=== PATIENT | female | born 1995 | race African-American/Black ===

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

== ENCOUNTER 2017-03-13 12:21 | Observation (INO) | payer OTHER ==
[~2017-03-13 12:21] MED LIST changes: +AMOX1TAB61 PO
[2017-03-13] MEDS ORDERED: IV RINGERS,LACTATED 1000ML 1,000 ML IV SCH (13:00)
== END 2017-03-13 15:15 | disposition home or self-care (01) ==
LOC: 3 SO LND 12:21 → INTOOBSV 12:21
PROVIDERS: ADMIT Specialist; ATTEND Specialist
DX: O62.9 Abnormality of forces of labor, unspecified (principal); Z3A.34 34 weeks gestation of pregnancy
CPT/HCPCS: G0378; G0379; 96360; J7120

== ENCOUNTER 2017-05-23 14:26 | Emergency (ER) | payer OTHER ==
[~2017-05-23] VITALS: Ht 170.2 cm; Wt 77.1 kg
[~2017-05-23 14:26] MED LIST changes: +HYDR-971 PO; +NAPR500T3 PO
[2017-05-23 14:57] VITALS: BP 127/94
--- NOTE | 2017-05-23 15:27 | PHYS DOC ---
Past Medical History Past Medical History: No Pertinent History Past Surgical History: No Surgical History Alcohol Use: None Drug Use: None Adult General Chief Complaint Chief Complaint: SEXUALLY TRANSMITTED DISEASE HPI HPI Patient is in 21 year old female who presents in the ED with request for test. Patient is not concerned about STDs. She states she had a baby 1 month ago and had sex with the baby mitra recently who promised patient he withdraw during ejaculation. Patient denies any symptoms. Review of Systems Review of Systems Constitutional: Denies fever or chills [] Eyes: Denies change in visual acuity, redness, or eye pain [] GI: test : Denies dysuria or hematuria [] Musculoskeletal: Denies back pain or joint pain [] Integument: Denies rash or skin lesions [] Neurologic: Denies headache, focal weakness or sensory changes [] Endocrine: Denies polyuria or polydipsia [] Allergies Allergies Allergies Coded Allergies Type Severity Reaction Last Updated Verified No Known Drug Allergies 10/10/16 No Physical Exam Physical Exam Constitutional: Well developed, well nourished, no acute distress, non-toxic appearance. [] HENT: Normocephalic, atraumatic, bilateral external ears normal, oropharynx moist, no oral exudates, nose normal. [] Abdomen: Bowel sounds normal, soft, no tenderness, no masses, no pulsatile masses. [] Skin: Warm, dry, no erythema, no rash. [] Back: No tenderness, no CVA tenderness. [] Extremities: No tenderness, no cyanosis, no clubbing, ROM intact, no edema. [] Neurologic: Alert and oriented X 3, normal motor function, normal sensory function, no focal deficits noted. [] Psychologic: Affect normal, judgement normal, mood normal. [] Current Patient Data Vital Signs Vital Signs Date Time Temp Pulse Resp B/P (MAP) Pulse Ox O2 Delivery O2 Flow Rate FiO2 05/23/17 14:57 98.8 73 22 99 Room Air 98.8 Lab Values Laboratory Tests Test 05/23/17 14:27 POC Urine HCG, Qualitative Hcg negative (Negative) EKG EKG [] Radiology/Procedures Radiology/Procedures [] Course & Med Decision Making Course & Med Decision Making Pertinent Labs and Imaging studies reviewed. (See chart for details) This is a 21-year-old female patient presenting to the ED requesting a test, she had a baby 1 month ago, she has not missed any cycle. She has no symptoms. Negative urine hCG. She has an STRATEGIC CLIENT EXECUTIVE. She'll follow-up with her OBGYN as needed. Vashti Disclaimer Vashti Disclaimer This electronic medical record was generated, in whole or in part, using a voice recognition dictation system. Departure Departure Impression: Primary Impression: test negative Disposition: HOME, SELF-CARE Condition: STABLE Referrals: NO PCP (PCP) Follow-up with your STRATEGIC CLIENT EXECUTIVE as needed Additional Instructions: Your test is negative. Follow-up with your STRATEGIC CLIENT EXECUTIVE as needed. [employer] [employer] REP May 23, 2017 15:27
== END 2017-05-23 15:42 | disposition home or self-care (01) ==
LOC: ER 14:26
DX: Z32.02 Encounter for pregnancy test, result negative (principal)
CPT/HCPCS: 81025; 99282

== ENCOUNTER 2017-11-18 14:32 | Emergency (ER) | payer OTHER ==
[2017-11-18 15:03] LABS: URINE HCG POC HCG NEGATIVE (Negative)
[2017-11-18 15:16] LABS: BILIRUBIN,URINE NEGATIVE (NEG); CLARITY,URINE CLOUDY; COLOR,URINE YELLOW; GLUCOSE,URINE NEGATIVE (NEG); NITRITE,URINE NEGATIVE (NEG); PROTEIN,URINE NEGATIVE (NEG-TRACE)
[2017-11-18 15:25] LABS: BACTERIA,URINE MODERATE /HPF (0-FEW); RBC,URINE 0 /HPF (0-2); SQUAMOUS EPITHELIAL CELL,UR MANY /LPF
[2017-11-18 15:45] LABS: NEG OBC UR NEG; POS OBC UR POS; U PREG PATIENT NEGATIVE (NEG)
== END 2017-11-18 15:57 | disposition home or self-care (01) ==
LOC: ER 14:32
DX: R10.30 Lower abdominal pain, unspecified (principal); Z32.02 Encounter for pregnancy test, result negative
CPT/HCPCS: 81001; 81025; 87086; 99284

== ENCOUNTER 2018-01-26 03:21 | Emergency (ER) | payer OTHER ==
[2018-01-26] MEDS ORDERED: LIDOCAINE WITH 8.4% SOD BICARB 3 ML DISP.SYRIN. (04:15)
[2018-01-26] MEDS: HYDROcodone/APAP 5/325MG 1 TAB TABLET PO (04:44)
[2018-01-26] MEDS: IBUPROFEN 800 MG TABLET. PO (04:45)
== END 2018-01-26 04:49 | disposition home or self-care (01) ==
LOC: ER 03:21
DX: L02.31 Cutaneous abscess of buttock (principal)
CPT/HCPCS: 10060; 99283-25

== ENCOUNTER 2018-11-12 14:38 | Emergency (ER) | payer OTHER ==
[~2018-11-12] VITALS: Ht 170.2 cm; Wt 74.8 kg
[~2018-11-12 14:38] MED LIST changes: +HYDR-3164 PO; -HYDR-971 PO; +NAPR-514 PO; -NAPR500T3 PO
[2018-11-12 15:09] VITALS: BP 146/83
[2018-11-12 15:17] LABS: BILIRUBIN,URINE NEGATIVE (NEG); CLARITY,URINE CLEAR; COLOR,URINE YELLOW; NITRITE,URINE NEGATIVE (NEG); PROTEIN,URINE NEGATIVE (NEG-TRACE)
[2018-11-12] MEDS ORDERED: METO10TA81 PO (15:26)
[2018-11-12] MEDS ORDERED: PNV1TABL25 PO (15:26)
[2018-11-12 15:34] LABS: BACTERIA,URINE FEW /HPF (0-FEW); RBC,URINE 0 /HPF (0-2); SQUAMOUS EPITHELIAL CELL,UR MOD /LPF
--- NOTE | 2018-11-12 15:41 | PHYS DOC ---
Past Medical History Past Medical History: No Pertinent History Past Surgical History: No Surgical History Alcohol Use: None Drug Use: None Adult General Chief Complaint Chief Complaint: PELVIC PAIN HPI HPI Patient is a 23 year old female who presents requesting test. Patient states her last period was in August. She is not using control. She presents to the ER only to request a test. She has no pelvic pain , fever, chills. No nausea or vomiting. Denies any other complaints. Review of Systems Review of Systems Constitutional: Denies fever or chills Eyes: Denies change in visual acuity HENT: Denies nasal congestion GI: Denies abdominal pain : Denies dysuria or hematuria Musculoskeletal: Denies back pain Integument: Denies rash Neurologic: Denies headache All other systems were reviewed and found to be within normal limits, except as documented in this note. Allergies Allergies Allergies Coded Allergies Type Severity Reaction Last Updated Verified No Known Drug Allergies 10/10/16 No Physical Exam Physical Exam Constitutional: Well developed, well nourished, no acute distress, non-toxic appearance HENT: Normocephalic, atraumatic, bilateral external ears normal, oropharynx moist Eyes: PERRLA, EOMI, conjunctiva normal Neck: Normal range of motion Skin: Warm, dry, no erythema, no rash Extremities: No edema Neurologic: Alert and oriented X 3 Psychologic: Affect normal Current Patient Data Vital Signs Vital Signs Date Time Temp Pulse Resp B/P (MAP) Pulse Ox O2 Delivery O2 Flow Rate FiO2 11/12/18 15:09 98.8 98 16 146/83 (104) 100 Room Air 98.8 Lab Values Laboratory Tests Test 11/12/18 14:53 11/12/18 15:05 Urine Color Yellow Urine Clarity Clear Urine pH 7.0 Urine Specific [place] >=1.030 Urine Protein Negative mg/dL (NEG-TRACE) Urine Glucose (UA) Negative mg/dL (NEG) Urine Ketones (Stick) Negative mg/dL (NEG) Urine Blood Negative (NEG) Urine Nitrite Negative (NEG) Urine Bilirubin Negative (NEG) Urine Urobilinogen Dipstick 1.0 mg/dL (0.2 mg/dL) Urine Leukocyte Esterase Small (NEG) Urine RBC 0 /HPF (0-2) Urine WBC 1-4 /HPF (0-4) Urine Squamous Epithelial Cells Mod /LPF Urine Bacteria Few /HPF (0-FEW) Urine Mucus Mod /LPF POC Urine HCG, Qualitative Hcg positive (Negative) EKG EKG [] Radiology/Procedures Radiology/Procedures [] Course & Med Decision Making Course & Med Decision Making Pertinent Labs and Imaging studies reviewed. (See chart for details) Patient evaluated in the ER today for test. She did test + for . She had no complaints of pelvic pain, bleeding, fever, or any other. She was discharged to home with Rx for vitamins and reglan. F/ u with Dr. Peng. Vashti Disclaimer Vashti Disclaimer This electronic medical record was generated, in whole or in part, using a voice recognition dictation system. Departure Departure Impression: Primary Impression: Disposition: HOME, SELF-CARE Condition: GOOD Patient Instructions: - First Trimester Scripts Pnv Cmb#95/Ferrous Fumarate/Fa ( TABLET) 1 Each Tablet 1 TAB PO DAILY, #90 TAB 3 Refills Prov: YARY JOSEPH DO 11/12/18 Metoclopramide Hcl (REGLAN) 10 Mg Tablet 10 MG PO QID for nause, #20 TAB 0 Refills Prov: YARY JOSEPH DO 11/12/18 YARY JOSEPH DO Nov 12, 2018 15:41
== END 2018-11-12 15:48 | disposition home or self-care (01) ==
LOC: ER 14:38
DX: Z32.01 Encounter for pregnancy test, result positive (principal)
CPT/HCPCS: 81001; 81025; 99283

== ENCOUNTER 2019-01-06 21:43 | Emergency (ER) | payer OTHER ==
[~2019-01-06] VITALS: Ht 170.2 cm; Wt 78.9 kg
[~2019-01-06 21:43] MED LIST changes: +METO10TA81 PO; +PNV1TABL25 PO
[2019-01-07] MEDS ORDERED: MUPI22OI2 TP
[2019-01-07] MEDS ORDERED: CEPH500C PO
--- NOTE | 2019-01-07 00:14 | PHYS DOC ---
Past Medical History Past Medical History: No Pertinent History Additional Past Medical Histor: Multiple abscess's Past Surgical History: No Surgical History Alcohol Use: None Drug Use: None Adult General Chief Complaint Chief Complaint: ABSCESS HPI HPI Patient is a 23 yo, 11 week , female presenting w/ an abscess located on her left intergluteal cleft about 3 cm from her anus. Pt reports she noticed it 4 days ago and she did warm baths and warm compresses, which caused it to swell more and become more painful. She relates having prior abscesses that were treated successfully w/ I&D and she believes this is the same thing. Pain is described as a "stinging" pain and rated a 10/10. She denies radiation of her pain, bowel/bladder changes, n/v, chest pain, SOB, fever, chills, sick contacts, or blood in stool or urine. She stated "just cut it open and get this crap out, I know it'll get better." Review of Systems Review of Systems Constitutional: Denies fever or chills Eyes: Denies change in visual acuity, redness, or eye pain HENT: Denies nasal congestion or sore throat Respiratory: Denies cough or shortness of breath Cardiovascular: No additional information not addressed in HPI GI: Denies abdominal pain, nausea, vomiting, bloody stools or diarrhea : Denies dysuria or hematuria Musculoskeletal: Denies back pain or joint pain Integument: Denies rash or skin lesions Neurologic: Denies headache, focal weakness or sensory changes Endocrine: Denies polyuria or polydipsia All other systems were reviewed and found to be within normal limits, except as documented in this note. Allergies Allergies Allergies Coded Allergies Type Severity Reaction Last Updated Verified No Known Drug Allergies 10/10/16 No Physical Exam Physical Exam Xochitl Figueroa, an AIR CONDITIONING SPECIALIST, was present throughout the encounter serving as supervisor assembly and packing DURING exam Constitutional: Well developed, well nourished, no acute distress, non-toxic appearance. [] HENT: Normocephalic, atraumatic, bilateral external ears normal, oropharynx moist, no oral exudates, nose normal. [] Eyes: PERRLA, EOMI, conjunctiva normal, no discharge. [] Neck: Normal range of motion, no tenderness, supple, no stridor. [] Abdomen: Bowel sounds normal, soft, no tenderness, no masses, no pulsatile masses. [] Skin: Warm, dry, no erythema, no rash. 2cm abscess located on left buttock, about 3 cm from her anus at the intergluteal cleft. It is warm to the touch touch, exquisitely tender to light palpation, and the overlying skin is taut and looks puss filled. Back: No tenderness, no CVA tenderness. [] Extremities: No tenderness, no cyanosis, no clubbing, ROM intact, no edema. [] Neurologic: Alert and oriented X 3, normal motor function, normal sensory function, no focal deficits noted. [] Psychologic: Affect normal, judgement normal, mood normal. [] Current Patient Data Vital Signs Vital Signs Date Time Temp Pulse Resp B/P (MAP) Pulse Ox O2 Delivery O2 Flow Rate FiO2 01/07/19 00:15 16 128/72 (90) 100 01/06/19 23:14 98.8 98 Room Air 98.8 EKG EKG [] Radiology/Procedures Radiology/Procedures [] Course & Med Decision Making Course & Med Decision Making 23 yo 11 week female with a history of multiple abscesses successfully treated by I&D presents with a left buttock abscess. The pt reports that it feels "exactly like," her symptoms from previous abscesses. Upon PE chaperoned with Xochitl, an AIR CONDITIONING SPECIALIST, a 2-3 cm abscess was appreciated on inspection. She is exquisitely tender to light palpation and the abscess looks puss-filled. She notes resolution of her symptoms in the past with I&D. Ddx Intergluteal cleft abscess Workup I&D was performed verbal consent area prepped usual fashion lidocaine subcutaneous for anesthesia 0.5 cm incision of moderate proximally 5-8 mL also possible was returned loculations were explored overall patient tolerated very well and a slight packing w/ a 4x4 was placed and covered. Xochitl Mendosa was present throughout the procedure. ABX's given as noted below strict return precautions for any worsening or recurrence. Of note patient was not complaining of any abdominal pain or any symptoms at all during this ER visit Pt education on wound care Dragon Disclaimer Dragon Disclaimer This electronic medical record was generated, in whole or in part, using a voice recognition dictation system. Departure Departure Impression: Primary Impression: Abscess Disposition: 01 HOME, SELF-CARE Condition: STABLE Patient Instructions: Abscess, [id number] Scripts Cephalexin (CEPHALEXIN) 500 Mg Capsule 1 CAP PO QID, #28 CAP Prov: DARYN JOHN MD 01/07/19 Mupirocin (MUPIROCIN OINTMENT) 22 Gm Oint...g. 1 DE TP TID for WOUND CARE, #1 TUBE Prov: DARYN JOHN MD 01/07/19 DARYN JOHN MD Jan 07, 2019 00:14
[2019-01-07 00:15] VITALS: BP 128/72
== END 2019-01-07 00:20 | disposition home or self-care (01) ==
LOC: ER 21:43
DX: O99.711 Diseases of the skin and subcutaneous tissue complicating pregnancy, first trimester (principal); L02.31 Cutaneous abscess of buttock; Z3A.11 11 weeks gestation of pregnancy
CPT/HCPCS: 10060; 99283

== ENCOUNTER 2019-02-01 14:59 | Emergency (ER) | payer OTHER ==
[~2019-02-01] VITALS: Ht 170.2 cm; Wt 78.9 kg
[~2019-02-01 14:59] MED LIST changes: +CEPH500C PO; +MUPI22OI2 TP
--- NOTE | 2019-02-01 16:04 | PHYS DOC ---
Past Medical History Past Medical History: No Pertinent History Additional Past Medical Histor: Multiple abscess's (CHHAYA HAN APRN) Past Surgical History: No Surgical History (CHHAYA HAN APRN) Alcohol Use: None Drug Use: None (CHHAYA HAN APRN) Adult General Chief Complaint Chief Complaint: VAGINAL BLEEDING HPI HPI 23-year-old female presents to ER for complaints of vaginal bleeding which started around 1:00 today while she was cleaning. She reports she is approximately 15 weeks 3 para 1. Her LMP was 09/2018. Reports she is being cared for by Dr. Peng with her last appointment being last Monday. She denies any abdominal pain. She states she did have sexual intercourse yesterday denies any pain or vaginal bleeding following. She denies any urinary symptoms, fever, nausea or vomiting, or back pain. (CHHAYA HAN APRN) Review of Systems Review of Systems Constitutional: Denies fever or chills [] Eyes: Denies change in visual acuity, redness, or eye pain [] HENT: Denies nasal congestion or sore throat [] Respiratory: Denies cough or shortness of breath [] Cardiovascular: No additional information not addressed in HPI [] GI: Denies abdominal pain, nausea, vomiting, bloody stools or diarrhea [] : Denies dysuria or hematuria. Reports vaginal spotting- denies pelvic pressure Musculoskeletal: Denies back pain or joint pain [] Integument: Denies rash or skin lesions [] Neurologic: Denies headache, focal weakness or sensory changes [] All other systems were reviewed and found to be within normal limits, except as documented in this note. (CHHAYA HAN APRN) Current Medications Current Medications Current Medications Medications (Trade) Dose Ordered Sig/Dinesh Start Time Stop Time Status Last Admin Dose Admin Potassium Chloride (Klor-Con) 40 meq 1X ONCE 02/01/19 17:45 02/01/19 17:46 DC (DARYN JOHN MD) Allergies Allergies Allergies Coded Allergies Type Severity Reaction Last Updated Verified No Known Drug Allergies 10/10/16 No (DARYN JOHN MD) Physical Exam Physical Exam Constitutional: Well developed, well nourished, no acute distress, non-toxic appearance. [] HENT: Normocephalic, atraumatic, bilateral ears normal, oropharynx moist, no oral exudates, nose normal. [] Eyes: Pupils equal, conjunctiva normal, no discharge. [] Neck: Normal range of motion, no tenderness, supple, no stridor. [] Cardiovascular: Heart rate regular rhythm, no murmur [] Lungs & Thorax: Bilateral breath sounds clear to auscultation [] Abdomen: Bowel sounds normal, soft, no tenderness- no rigidity, no masses, no pulsatile masses. [] Skin: Warm, dry, no erythema, no rash. [] Back: No tenderness, no CVA tenderness. [] Extremities: No tenderness, no cyanosis, no clubbing, ROM intact, no edema. [] Neurologic: Alert and oriented X 3, normal motor function, normal sensory function, no focal deficits noted. [] Psychologic: Affect normal, judgement normal, mood normal. [] (REFFITT,CHHAYA James APRN) Current Patient Data Vital Signs Vital Signs Date Time Temp Pulse Resp B/P (MAP) Pulse Ox O2 Delivery O2 Flow Rate FiO2 02/01/19 16:09 98.7 83 16 137/69 (91) 99 Room Air 98.7 (DARYN JOHN MD) Lab Values Laboratory Tests Test 02/01/19 15:40 02/01/19 15:56 02/01/19 16:20 Urine Collection Type Unknown Urine Color Kitty Urine Clarity Clear Urine pH 6.5 Urine Specific [place] >=1.030 Urine Protein Negative mg/dL (NEG-TRACE) Urine Glucose (UA) Negative mg/dL (NEG) Urine Ketones (Stick) Trace mg/dL (NEG) Urine Blood Moderate (NEG) Urine Nitrite Negative (NEG) Urine Bilirubin Small (NEG) Urine Urobilinogen Dipstick 1.0 mg/dL (0.2 mg/dL) Urine Leukocyte Esterase Small (NEG) Urine RBC 3-5 /HPF (0-2) Urine WBC 1-4 /HPF (0-4) Urine Squamous Epithelial Cells Many /LPF Urine Bacteria 0 /HPF (0-FEW) Urine Mucus Marked /LPF POC Urine HCG, Qualitative Hcg positive (Negative) White Blood Count 7.1 x10^3/uL (4.0-11.0) Red Blood Count 3.54 x10^6/uL (3.50-5.40) Hemoglobin 10.6 g/dL (12.0-15.5) L Hematocrit 31.8 % (36.0-47.0) L Mean Corpuscular Volume 90 fL (79-100) Mean Corpuscular Hemoglobin 30 pg (25-35) Mean Corpuscular Hemoglobin Concent 33 g/dL (31-37) Red Cell Distribution Width 14.0 % (11.5-14.5) Platelet Count 236 x10^3/uL (140-400) Neutrophils (%) (Auto) 70 % (31-73) Lymphocytes (%) (Auto) 21 % (24-48) L Monocytes (%) (Auto) 7 % (0-9) Eosinophils (%) (Auto) 1 % (0-3) Basophils (%) (Auto) 0 % (0-3) Neutrophils # (Auto) 5.0 x10^3uL (1.8-7.7) Lymphocytes # (Auto) 1.5 x10^3/uL (1.0-4.8) Monocytes # (Auto) 0.5 x10^3/uL (0.0-1.1) Eosinophils # (Auto) 0.1 x10^3/uL (0.0-0.7) Basophils # (Auto) 0.0 x10^3/uL (0.0-0.2) Maternal Serum HCG Beta Subunit 59386 mIU/mL (0-5) H Sodium Level 138 mmol/L (136-145) Potassium Level 3.2 mmol/L (3.5-5.1) L Chloride Level 102 mmol/L (98-107) Carbon Dioxide Level 25 mmol/L (21-32) Anion Gap 11 (6-14) Blood Urea Nitrogen 4 mg/dL (7-20) L Creatinine 0.4 mg/dL (0.6-1.0) L Estimated GFR (Cockcroft-Gault) 243.8 Glucose Level 74 mg/dL (70-99) Calcium Level 8.8 mg/dL (8.5-10.1) Laboratory Tests 02/01/19 16:20 Laboratory Tests 02/01/19 16:20 Microbiology 02/01/19 Urine Culture - Final, Complete 02/01/19 Urine Culture Result 1 (JAGRUTI) - Final, Complete (DARYN JOHN MD) EKG EKG [] (REFFITT,CHHAYA M TILE HELPER) Radiology/Procedures Radiology/Procedures Pelvic Exam: 1725 Abdomen: Nontender External Genitalia: Normal Skin- no rash or lesions Speculum: Normal vaginal mucosa, small amount dark red blood in vaginal vault without tissue or clots. Cervical os closed. No lesions, ecchymosis or erythema around cervix PROCEDURE: PREG MORE THAN OR EQ TO 14 WKS Indication:vag spotting TECHNIQUE: Ultrasound OB greater than equal to 14 weeks. COMPARISON: None FINDINGS: Single intrauterine seen in breech presentation. Placenta lies posterior in location. Biparietal diameter measures 3.37 cm corresponding to gestation age of 16 weeks 3 days. Head circumference measures 12.22 cm corresponding to 16 weeks 1 day. Abdominal circumference measures 9.74 cm corresponding to gestation age of 15 weeks 6 days. Femoral length measures 1.91 cm corresponding to gestation age of 15 weeks 5 days. Heart rate 150 bpm. Cervix is closed and measures 4.7 cm in length. Primary fluid index is within normal limits. Estimated weight of 135 g. IMPRESSION: Single live viable intrauterine with estimated gestation age of 16 weeks 0 day and due date of 07/19/2019. Electronically signed by: Godwin Hopkins DO (02/01/2019 4:55 PM) [facility] DICTATED and SIGNED BY: GODWIN HOPKINS DO DATE: 02/01/19 1655 (CHHAYA HAN APRN) Course & Med Decision Making Course & Med Decision Making Pertinent Labs and Imaging studies reviewed. (See chart for details) 1730: Patient was evaluated in the ER for complaints of vaginal spotting. Ultrasound was obtained and labs- ultrasound report with single intrauterine at 16 weeks with estimated due date 07/19/19. H&H 10.6/31.8- with patient having history of anemia and these levels are better than her last results in her records. Pt advised on need for vitamins daily. Pt's K+ was 3.2 so 40 meq oral K+ supplement provided while in the ER. Pt advised of her level and need for K+ rich food in diet and need for recheck of labs. Pelvic exam was complete patient did have dark red blood in vaginal vault no clots, tissue, or active bleeding from cervix. Cervical os was closed. Patient denied any abdominal pain, cramping, or back pain. Patient was advised with vaginal bleeding she should have her level rechecked in 48 hours. Patient was advised to call her STRATEGIC MANAGER's office and discussed her ER visit and need for follow-up labs. Patient's blood type was A+ so she was not able to candidate. Patient reports following tests she is comfortable with home discharge with plans to call OB office in the morning. Patient has been in no visible distress with vital signs stable. Educated on vaginal rest until follow- up with her OB doctor. Education provided on signs and symptoms to return to ER for an discharge instructions were discussed. (CHHAYA HAN APRN) Course & Med Decision Making Staff Physician Addendum: I was working in the ER during the course of this patient's visit. I was available for consultation as needed, but I was not directly involved in the care of this patient. (DARYN JOHN MD) Dragon Disclaimer Dragon Disclaimer This electronic medical record was generated, in whole or in part, using a voice recognition dictation system. (CHHAYA HAN APRN) Departure Departure Impression: Primary Impression: Vaginal bleeding during Disposition: 01 HOME, SELF-CARE Condition: STABLE Referrals: MARISOL PENG MD (PCP) Patient Instructions: Vaginal Bleeding During , Second Trimester Additional Instructions: Vaginal rest until follow-up with your STRATEGIC MANAGER. No sexual intercourse or insertion into the vagina. You need to have your level rechecked in 48 hours. Call your OB GYNs office and discuss your ER visit and need for repeat of labs. Drink plenty of fluids and eat well-balanced meals. Your potassium level was 3.2 and you were provided with potassium while in the ER. If you start having vaginal bleeding which is soaking through 1-2 pads in 1 hour you should return to the ER or contact your STRATEGIC MANAGER. CHHAYA HAN APRN Feb 01, 2019 16:04 DARYN JOHN MD Feb 13, 2019 19:41
[2019-02-01 16:05] LABS: BILIRUBIN,URINE SMALL (NEG); CLARITY,URINE CLEAR; COLOR,URINE AMBER; NITRITE,URINE NEGATIVE (NEG); PH,URINE 6.5; PROTEIN,URINE NEGATIVE (NEG-TRACE)
[2019-02-01 16:09] VITALS: BP 137/69
[2019-02-01 16:19] LABS: SQUAMOUS EPITHELIAL CELL,UR MANY /LPF
[2019-02-01 16:20] LABS: BACTERIA,URINE 0 /HPF (0-FEW)
[2019-02-01 16:41] LABS: BASO % 0 % (0-3); EOS # 0.1 x10^3/uL (0.0-0.7); EOS % 1 % (0-3); HEMATOCRIT 31.8 % (36.0-47.0); HEMOGLOBIN 10.6 g/dL (12.0-15.5); LYMPH # 1.5 x10^3/uL (1.0-4.8); LYMPH % 21 % (24-48); MEAN CORPUSCULAR HEMOGLOBIN 30 pg (25-35); MEAN CORPUSCULAR HGB CONC 33 g/dL (31-37); MEAN CORPUSCULAR VOLUME 90 fL (79-100); MONO # 0.5 x10^3/uL (0.0-1.1); MONO % 7 % (0-9); NEUT % 70 % (31-73); PLATELET COUNT 236 x10^3/uL (140-400); RED BLOOD COUNT 3.54 x10^6/uL (3.50-5.40); WHITE BLOOD COUNT 7.1 x10^3/uL (4.0-11.0)
[2019-02-01 16:58] LABS: CALCIUM 8.8 mg/dL (8.5-10.1); CREATININE 0.4 mg/dL (0.6-1.0); GFR 243.8; POTASSIUM 3.2 mmol/L (3.5-5.1)
--- NOTE | 2019-02-01 16:58 | RAD ---
Indication:vag spotting TECHNIQUE: Ultrasound OB greater than equal to 14 weeks. COMPARISON: None FINDINGS: Single intrauterine seen in breech presentation. Placenta lies posterior in location. Biparietal diameter measures 3.37 cm corresponding to gestation age of 16 weeks 3 days. Head circumference measures 12.22 cm corresponding to 16 weeks 1 day. Abdominal circumference measures 9.74 cm corresponding to gestation age of 15 weeks 6 days. Femoral length measures 1.91 cm corresponding to gestation age of 15 weeks 5 days. Heart rate 150 bpm. Cervix is closed and measures 4.7 cm in length. Primary fluid index is within normal limits. Estimated weight of 135 g. IMPRESSION: Single live viable intrauterine with estimated gestation age of 16 weeks 0 day and due date of 07/19/2019. Electronically signed by: Godwin Hopkins DO (02/01/2019 4:55 PM) [facility]
[2019-02-01] MEDS ORDERED: POTASSIUM CHLORIDE 20 MEQ TABLET.ER. PO ONE (17:45)
== END 2019-02-01 17:57 | disposition home or self-care (01) ==
LOC: ER 14:59
DX: O46.92 Antepartum hemorrhage, unspecified, second trimester (principal); Z3A.15 15 weeks gestation of pregnancy
CPT/HCPCS: 36415; 76805; 80048; 81001; 81025; 84702; 85025; 86900; 86901; 87086; 99284-25

== ENCOUNTER 2019-04-11 20:30 | Observation (INO) | payer OTHER ==
[2019-04-11] MEDS ORDERED: IV RINGERS,LACTATED 1000ML 1,000 ML IV SCH (20:36)
[2019-04-11 20:55] LABS: BILIRUBIN,URINE NEGATIVE (NEG); CLARITY,URINE CLEAR; COLOR,URINE YELLOW; NITRITE,URINE NEGATIVE (NEG); PROTEIN,URINE NEGATIVE (NEG-TRACE)
[2019-04-11 21:01] LABS: BACTERIA,URINE 0 /HPF (0-FEW); BARBITURATES NEG (NEG); BENZODIAZEPINES NEG (NEG); CANNABINOIDS POS (NEG); COCAINE NEG (NEG); METHADONE NEG (NEG); OPIATES NEG (NEG); PHENCYCLIDINE NEG (NEG); RBC,URINE 0 /HPF (0-2); SQUAMOUS EPITHELIAL CELL,UR MOD /LPF
[2019-04-11 21:02] LABS: AMPHETAMINE/METHAMPHETAMINE NEG (NEG)
[2019-04-11] MEDS ORDERED: ACETAMINOPHEN 500 MG TABLET PO ONE (21:45)
== END 2019-04-11 21:50 | disposition home or self-care (01) ==
LOC: 3 SO LND 20:30
PROVIDERS: ADMIT Obstetrics & Gynecology; ATTEND Obstetrics & Gynecology
DX: O26.892 Other specified pregnancy related conditions, second trimester (principal); R10.9 Unspecified abdominal pain; O99.89 Other specified diseases and conditions complicating pregnancy, childbirth and the puerperium; M54.5 Low back pain; Z3A.25 25 weeks gestation of pregnancy
CPT/HCPCS: 80307; 81001; 87086; G0379

== ENCOUNTER 2019-05-16 02:18 | Observation (INO) | payer OTHER ==
[2019-05-16] MEDS ORDERED: IV RINGERS,LACTATED 1000ML 1,000 ML IV SCH (02:21)
[2019-05-16 02:43] LABS: BILIRUBIN,URINE NEGATIVE (NEG); CLARITY,URINE CLOUDY; COLOR,URINE YELLOW; NITRITE,URINE NEGATIVE (NEG); PH,URINE 7.5; PROTEIN,URINE NEGATIVE (NEG-TRACE)
[2019-05-16 02:47] LABS: BACTERIA,URINE 0 /HPF (0-FEW); RBC,URINE 0 /HPF (0-2); WBC,URINE OCC /HPF (0-4)
[2019-05-16 02:48] LABS: AMORPHOUS SEDIMENT,UR PRESENT /HPF; SQUAMOUS EPITHELIAL CELL,UR MOD /LPF
[2019-05-16 02:51] LABS: BARBITURATES NEG (NEG); BENZODIAZEPINES NEG (NEG); CANNABINOIDS POS (NEG); COCAINE NEG (NEG); METHADONE NEG (NEG); OPIATES NEG (NEG); PHENCYCLIDINE NEG (NEG)
[2019-05-16 02:54] LABS: AMPHETAMINE/METHAMPHETAMINE NEG (NEG)
== END 2019-05-16 04:07 | disposition home or self-care (01) ==
LOC: 3 SO LND 02:18
PROVIDERS: ADMIT Specialist; ATTEND Specialist
DX: O26.893 Other specified pregnancy related conditions, third trimester (principal); R10.30 Lower abdominal pain, unspecified; Z3A.30 30 weeks gestation of pregnancy
CPT/HCPCS: 80307; 81001; G0378; G0379

== ENCOUNTER 2019-05-31 13:32 | Observation (INO) | payer OTHER ==
[2019-05-31] MEDS ORDERED: IV RINGERS,LACTATED 1000ML 1,000 ML IV SCH (13:33)
[2019-05-31 14:25] LABS: BARBITURATES NEG (NEG); BENZODIAZEPINES NEG (NEG); CANNABINOIDS POS (NEG); COCAINE NEG (NEG); METHADONE NEG (NEG); OPIATES NEG (NEG); PHENCYCLIDINE NEG (NEG)
[2019-05-31 14:26] LABS: AMPHETAMINE/METHAMPHETAMINE NEG (NEG); BILIRUBIN,URINE NEGATIVE (NEG); CLARITY,URINE CLEAR; COLOR,URINE YELLOW; NITRITE,URINE NEGATIVE (NEG); PH,URINE 7.5; PROTEIN,URINE NEGATIVE (NEG-TRACE)
[2019-05-31 14:34] LABS: BACTERIA,URINE 0 /HPF (0-FEW); RBC,URINE 0 /HPF (0-2); SQUAMOUS EPITHELIAL CELL,UR OCC /LPF; WBC,URINE OCC /HPF (0-4)
== END 2019-05-31 17:00 | disposition home or self-care (01) ==
LOC: 3 SO LND 13:32
PROVIDERS: ADMIT Specialist; ATTEND Specialist
DX: O62.9 Abnormality of forces of labor, unspecified (principal); O99.89 Other specified diseases and conditions complicating pregnancy, childbirth and the puerperium; M54.5 Low back pain; Z3A.32 32 weeks gestation of pregnancy
CPT/HCPCS: 80307; 81001; G0378; G0379

== ENCOUNTER 2019-06-20 08:21 | Observation (INO) | payer OTHER ==
[~2019-06-20] VITALS: Ht 172.7 cm; Wt 94.8 kg
[2019-06-20] MEDS ORDERED: IV RINGERS,LACTATED 1000ML 1,000 ML IV SCH (09:22)
[2019-06-20 10:04] LABS: CREATININE,RANDOM URINE 135.9 mg/dL (Not Establ.)
[2019-06-20 10:30] LABS: BASO % 0 % (0-3); EOS # 0.1 x10^3/uL (0.0-0.7); EOS % 1 % (0-3); HEMATOCRIT 28.3 % (36.0-47.0); HEMOGLOBIN 9.5 g/dL (12.0-15.5); LYMPH # 1.7 x10^3/uL (1.0-4.8); LYMPH % 25 % (24-48); MEAN CORPUSCULAR HEMOGLOBIN 29 pg (25-35); MEAN CORPUSCULAR HGB CONC 33 g/dL (31-37); MEAN CORPUSCULAR VOLUME 87 fL (79-100); MONO # 0.7 x10^3/uL (0.0-1.1); MONO % 11 % (0-9); NEUT # 4.4 x10^3/uL (1.8-7.7); NEUT % 63 % (31-73); PLATELET COUNT 223 x10^3/uL (140-400); RED BLOOD COUNT 3.26 x10^6/uL (3.50-5.40); RED CELL DISTRIBUTION WIDTH 13.8 % (11.5-14.5)
[2019-06-20 10:37] LABS: CALCIUM 8.3 mg/dL (8.5-10.1); CREATININE 0.5 mg/dL (0.6-1.0); GFR 188.5; POTASSIUM 3.5 mmol/L (3.5-5.1)
[2019-06-20 10:43] LABS: ALBUMIN 2.5 g/dL (3.4-5.0); ALBUMIN/GLOBULIN RATIO 0.7 (1.0-1.7); TOTAL BILIRUBIN 0.6 mg/dL (0.2-1.0); TOTAL PROTEIN 6.3 g/dL (6.4-8.2); URIC ACID 2.6 mg/dL (2.6-6.0)
[2019-06-20 11:41] LABS: BILIRUBIN,URINE NEGATIVE (NEG); CLARITY,URINE CLEAR; COLOR,URINE AMBER; NITRITE,URINE NEGATIVE (NEG); PH,URINE 6.5; PROTEIN,URINE NEGATIVE (NEG-TRACE)
[2019-06-20 12:00] LABS: BACTERIA,URINE FEW /HPF (0-FEW); RBC,URINE RARE /HPF (0-2)
[2019-06-20 12:01] LABS: SQUAMOUS EPITHELIAL CELL,UR MOD /LPF
== END 2019-06-20 13:00 | disposition home or self-care (01) ==
LOC: 3 SO LND 08:21
PROVIDERS: ADMIT Specialist; ATTEND Specialist
DX: O62.9 Abnormality of forces of labor, unspecified (principal); Z3A.35 35 weeks gestation of pregnancy
CPT/HCPCS: 36415; 80053; 81001; 82570; 84156; 84550; 85025; 87086; G0378; G0379; J7120

== ENCOUNTER 2019-06-20 20:49 | Observation (INO) | payer OTHER ==
[2019-06-20] MEDS ORDERED: IV RINGERS,LACTATED 1000ML 1,000 ML IV SCH (20:50)
[2019-06-20 21:23] LABS: BILIRUBIN,URINE NEGATIVE (NEG); CLARITY,URINE CLOUDY; COLOR,URINE YELLOW; NITRITE,URINE NEGATIVE (NEG); PROTEIN,URINE NEGATIVE (NEG-TRACE)
[2019-06-20 21:28] LABS: BACTERIA,URINE MANY /HPF (0-FEW); RBC,URINE 0 /HPF (0-2); SQUAMOUS EPITHELIAL CELL,UR MANY /LPF
[2019-06-20 21:30] LABS: BARBITURATES NEG (NEG); BENZODIAZEPINES NEG (NEG); CANNABINOIDS NEG (NEG); COCAINE NEG (NEG); METHADONE NEG (NEG); OPIATES NEG (NEG); PHENCYCLIDINE NEG (NEG)
[2019-06-20 21:31] LABS: AMPHETAMINE/METHAMPHETAMINE NEG (NEG)
== END 2019-06-20 23:03 | disposition home or self-care (01) ==
LOC: 3 SO LND 20:49
PROVIDERS: ADMIT Specialist; ATTEND Specialist
DX: O62.9 Abnormality of forces of labor, unspecified (principal); O26.893 Other specified pregnancy related conditions, third trimester; R19.7 Diarrhea, unspecified; Z3A.35 35 weeks gestation of pregnancy
CPT/HCPCS: 80307; 81001; 87086; G0378; G0379

== ENCOUNTER 2019-07-10 13:08 | Observation (INO) | payer OTHER ==
[2019-07-10 13:45] LABS: BILIRUBIN,URINE SMALL (NEG); CLARITY,URINE CLOUDY; COLOR,URINE AMBER; NITRITE,URINE NEGATIVE (NEG); PROTEIN,URINE 30 mg/dL (NEG-TRACE)
[2019-07-10 13:47] LABS: AMNIO PT NEGATIVE
[2019-07-10 13:51] LABS: SQUAMOUS EPITHELIAL CELL,UR MANY /LPF
[2019-07-10 13:52] LABS: BACTERIA,URINE MANY /HPF (0-FEW); RBC,URINE 0 /HPF (0-2)
== END 2019-07-10 14:37 | disposition home or self-care (01) ==
LOC: 3 SO LND 13:08
PROVIDERS: ADMIT Specialist; ATTEND Specialist
DX: O62.9 Abnormality of forces of labor, unspecified (principal); Z3A.38 38 weeks gestation of pregnancy
CPT/HCPCS: 36415; 81001; 84112; 87086; G0378; G0379

== ENCOUNTER 2019-07-12 12:25 | Inpatient (IN) | payer OTHER ==
[~2019-07-12] VITALS: Ht 172.7 cm; Wt 98.4 kg
[2019-07-12] MEDS ORDERED: 0.9 % SODIUM CHLORIDE 10 ML DISP.SYRIN. IV PRN ×2 (13:45→14:45)
[2019-07-12 13:54] LABS: BILIRUBIN,URINE NEGATIVE (NEG); CLARITY,URINE CLEAR; COLOR,URINE YELLOW; NITRITE,URINE NEGATIVE (NEG); PH,URINE 6.5; PROTEIN,URINE NEGATIVE (NEG-TRACE)
[2019-07-12 14:05] LABS: BASO # 0.1 x10^3/uL (0.0-0.2); BASO % 1 % (0-3); EOS # 0.1 x10^3/uL (0.0-0.7); EOS % 1 % (0-3); HEMATOCRIT 29.1 % (36.0-47.0); HEMOGLOBIN 9.8 g/dL (12.0-15.5); LYMPH # 1.7 x10^3/uL (1.0-4.8); LYMPH % 21 % (24-48); MEAN CORPUSCULAR HEMOGLOBIN 29 pg (25-35); MEAN CORPUSCULAR HGB CONC 34 g/dL (31-37); MEAN CORPUSCULAR VOLUME 87 fL (79-100); MONO # 0.7 x10^3/uL (0.0-1.1); MONO % 8 % (0-9); NEUT # 5.6 x10^3/uL (1.8-7.7); NEUT % 68 % (31-73); PLATELET COUNT 293 x10^3/uL (140-400); RED BLOOD COUNT 3.36 x10^6/uL (3.50-5.40); RED CELL DISTRIBUTION WIDTH 14.7 % (11.5-14.5); WHITE BLOOD COUNT 8.1 x10^3/uL (4.0-11.0)
[2019-07-12 14:09] LABS: SQUAMOUS EPITHELIAL CELL,UR MANY /LPF
[2019-07-12 14:10] LABS: BACTERIA,URINE MODERATE /HPF (0-FEW)
[2019-07-12 14:13] LABS: CALCIUM 9.1 mg/dL (8.5-10.1); CREATININE 0.5 mg/dL (0.6-1.0); GFR 188.5; POTASSIUM 3.2 mmol/L (3.5-5.1)
[2019-07-12 14:19] LABS: ALBUMIN 2.6 g/dL (3.4-5.0); ALBUMIN/GLOBULIN RATIO 0.6 (1.0-1.7); TOTAL BILIRUBIN 0.8 mg/dL (0.2-1.0); TOTAL PROTEIN 7.2 g/dL (6.4-8.2); URIC ACID 3.1 mg/dL (2.6-6.0)
[2019-07-12] MEDS ORDERED: OXYTOCIN 30 UNIT/500 ML PREMIX 500 ML IV PRN ×2 (14:45)
[2019-07-12] MEDS ORDERED: BUTORPHANOL 2 MG/ML VIAL. IV PRN ×2 (14:45)
[2019-07-12] MEDS ORDERED: fentaNYL PF VIAL 100 MCG/2 ML VIAL IV PRN (14:45)
[2019-07-12] MEDS ORDERED: TERBUTALINE 1 MG/ML VIAL. SQ PRN (14:45)
[2019-07-12] MEDS ORDERED: LIDOCAINE 1% PF 30 ML VIAL. INJ PRN (14:45)
[2019-07-12] MEDS ORDERED: DINOPROSTONE 10 MG SUPP.VAG VG ONE (14:45)
[2019-07-12] MEDS ORDERED: NALBUPHINE 10 MG/ML AMPUL. IV PRN ×2 (14:45)
[2019-07-12 15:52] LABS: BARBITURATES NEG (NEG); BENZODIAZEPINES NEG (NEG); CANNABINOIDS POS (NEG); COCAINE NEG (NEG); METHADONE NEG (NEG); OPIATES NEG (NEG); PHENCYCLIDINE NEG (NEG)
[2019-07-12 15:54] LABS: AMPHETAMINE/METHAMPHETAMINE NEG (NEG)
[2019-07-12] MEDS: IV RINGERS,LACTATED 1000ML 1,000 ML IV SCH ×2 (16:19→22:41)
[2019-07-12 16:37] VITALS: BP 131/76
[2019-07-12] MEDS: ACETAMINOPHEN 325 MG TABLET. PO PRN (17:06)
--- NOTE | 2019-07-12 18:42 | PDOC1 ---
OB - History Hx of Present Care: Good Care Ultrasounds: Normal mid trimester US Obstetrical Complications: Gestational Hypertension Medical Complications: None Past Family/Social History * Past Medical, Surgical, Family and Obstetric Histories reviewed from chart. Blood Type: A+ Rubella: Immune RPR/VDRL: Negative GBS Status: Negative HBsAG: Negative OB - Chief Complaint & HPI Date of Admission: Date of Admission: Jul 12, 2019 at 12:25 Chief Complaint/History : 2 Para: 0 EGA: 38 Reason for admission: induction of labor Indication for induction: medical complication (Gestational HTN) Admission Nurse Assessment Rev: Yes OB - Admission Exam Physical Exam Vitals: VS - Last 72 Hours, by Label Date Time Temp Pulse Resp B/P (MAP) Pulse Ox O2 Delivery O2 Flow Rate FiO2 07/12/19 16:37 98.1 92 18 131/76 (94) Room Air 98.1 HEENT: Normal Heart: Regular Rate Lungs: Clear, Equal Abdomen: Gravid, Non tender, Soft Extremities: Edema Reflexes: Normal Cervical Dilatation: 2cm Effacement: 50% Station: -3 Membranes: Intact Heart Rate: Normal Accelerations: Accelerations Present Decelerations: No decelerations Contractions on Admission: >10 Minutes Apart Intensity: Mild Text A: 38 wks IUP Gestational HTN P: Admit for IOL secondary gestational HTN with cervidil, then pitocin in am. ROD COURTNEY Jr, MD Jul 12, 2019 18:42
--- NOTE | 2019-07-12 23:04 | NUR ---
Previous RN. Eleuterio Moctezuma RN reported the patient was Group Beta Strep Negative, when Melody Epperson RN reviewed chart, Results were found to be Positive. Antibiotics were ordered at that time.
[2019-07-13] MEDS ORDERED: AMPICILLIN SODIUM 2 GM in IV NORMAL SALINE 100ML 100 ML IV ONE ×2
[2019-07-13] MEDS: AMPICILLIN SODIUM 1 GM in IV NORMAL SALINE 50ML 50 ML IV SCH ×3 (05:37→12:48)
[2019-07-13] MEDS: IV RINGERS,LACTATED 1000ML 1,000 ML IV SCH ×5 (08:44→22:42)
[2019-07-13] MEDS ORDERED: ROPIVacaine 0.2% PF 10 ML VIAL. ONE (10:14)
[2019-07-13] MEDS ORDERED: L&D EPIDURAL SYRINGE 50 ML ONE (10:15)
[2019-07-13] MEDS ORDERED: ePHEDrine PF IN SALINE 50 MG/10 ML SYRINGE. IV PRN (10:45)
[2019-07-13] MEDS ORDERED: ROPIVacaine 0.2% IN 0.9%NACL PF 40 MG/20 ML DISP.SYRIN. EPID PRN (10:45)
[2019-07-13] MEDS ORDERED: NALOXONE 0.4 MG/ML VIAL. IV PRN (10:45)
[2019-07-13] MEDS ORDERED: L&D EPIDURAL SYRINGE 50 ML EPID PRN (10:45)
--- NOTE | 2019-07-13 13:53 | PDOC ---
OB Progress Note Date of Service 07/13/19 Time of Evaluation 1350 Notes Pt. feeling well and comfortable with epidural. BP stable Lab Laboratory Tests Test 07/12/19 13:40 07/12/19 13:50 Urine Collection Type Unknown Urine Color Yellow Urine Clarity Clear Urine pH 6.5 Urine Specific [place] <=1.005 Urine Protein Negative mg/dL (NEG-TRACE) Urine Glucose (UA) Negative mg/dL (NEG) Urine Ketones (Stick) Negative mg/dL (NEG) Urine Blood Negative (NEG) Urine Nitrite Negative (NEG) Urine Bilirubin Negative (NEG) Urine Urobilinogen Dipstick 1.0 mg/dL (0.2 mg/dL) Urine Leukocyte Esterase Small (NEG) Urine RBC 1-2 /HPF (0-2) Urine WBC 5-10 /HPF (0-4) Urine Squamous Epithelial Cells Many /LPF Urine Bacteria Moderate /HPF (0-FEW) Urine Random Creatinine 42.0 mg/dL (Not Establ.) Urine Random Total Protein 8.0 mg/dL (Not Establ.) Urine Protein/Creatinine Ratio 190 mg/g (0-200) Urine Opiates Screen Neg (NEG) Urine Methadone Screen Neg (NEG) Urine Barbiturates Neg (NEG) Urine Phencyclidine Screen Neg (NEG) Urine Amphetamine/Methamphetamine Neg (NEG) Urine Benzodiazepines Screen Neg (NEG) Urine Cocaine Screen Neg (NEG) Urine Cannabinoids Screen Pos (NEG) Urine Ethyl Alcohol Neg (NEG) White Blood Count 8.1 x10^3/uL (4.0-11.0) Red Blood Count 3.36 x10^6/uL (3.50-5.40) Hemoglobin 9.8 g/dL (12.0-15.5) Hematocrit 29.1 % (36.0-47.0) Mean Corpuscular Volume 87 fL (79-100) Mean Corpuscular Hemoglobin 29 pg (25-35) Mean Corpuscular Hemoglobin Concent 34 g/dL (31-37) Red Cell Distribution Width 14.7 % (11.5-14.5) Platelet Count 293 x10^3/uL (140-400) Neutrophils (%) (Auto) 68 % (31-73) Lymphocytes (%) (Auto) 21 % (24-48) Monocytes (%) (Auto) 8 % (0-9) Eosinophils (%) (Auto) 1 % (0-3) Basophils (%) (Auto) 1 % (0-3) Neutrophils # (Auto) 5.6 x10^3/uL (1.8-7.7) Lymphocytes # (Auto) 1.7 x10^3/uL (1.0-4.8) Monocytes # (Auto) 0.7 x10^3/uL (0.0-1.1) Eosinophils # (Auto) 0.1 x10^3/uL (0.0-0.7) Basophils # (Auto) 0.1 x10^3/uL (0.0-0.2) Sodium Level 137 mmol/L (136-145) Potassium Level 3.2 mmol/L (3.5-5.1) Chloride Level 103 mmol/L (98-107) Carbon Dioxide Level 24 mmol/L (21-32) Anion Gap 10 (6-14) Blood Urea Nitrogen 6 mg/dL (7-20) Creatinine 0.5 mg/dL (0.6-1.0) Estimated GFR (Cockcroft-Gault) 188.5 BUN/Creatinine Ratio 12 (6-20) Glucose Level 81 mg/dL (70-99) Uric Acid 3.1 mg/dL (2.6-6.0) Calcium Level 9.1 mg/dL (8.5-10.1) Total Bilirubin 0.8 mg/dL (0.2-1.0) Aspartate Amino Transf (AST/SGOT) 38 U/L (15-37) Alanine Aminotransferase (ALT/SGPT) 81 U/L (14-59) Alkaline Phosphatase 225 U/L (46-116) Total Protein 7.2 g/dL (6.4-8.2) Albumin 2.6 g/dL (3.4-5.0) Albumin/Globulin Ratio 0.6 (1.0-1.7) Medications Current Medications Sodium Chloride (Normal Saline Flush) 3 ml QSHIFT PRN IV AFTER MEDS AND BLOOD DRAWS; Start 07/12/19 at 13:45 Sodium Chloride (Normal Saline Flush) 3 ml QSHIFT PRN IV AFTER MEDS AND BLOOD DRAWS; Start 07/12/19 at 14:45; Status Cancel Ringer's Solution 1,000 ml @ 125 mls/hr Q8H IV Last administered on 07/13/19at 08:44; Start 07/12/19 at 14:42 Nalbuphine HCl (Nubain) 5 mg PRN Q1HR PRN IV Mild to moderate labor pain; Start 07/12/19 at 14:45; Stop 07/13/19 at 06:14; Status DC Nalbuphine HCl (Nubain) 10 mg PRN Q1HR PRN IV Severe labor pain; Start 07/12/19 at 14:45; Stop 07/13/19 at 06:14; Status DC Butorphanol Tartrate (Stadol) 1 mg PRN Q1HR PRN IV mild to moderate labor pain; Start 07/12/19 at 14:45 Butorphanol Tartrate (Stadol) 2 mg PRN Q1HR PRN IV Severe labor pain Last administered on 07/13/19at 05:42; Start 07/12/19 at 14:45 Fentanyl Citrate (Fentanyl 2ml Vial) 100 mcg PRN Q30MIN PRN IV Severe pain Last administered on 07/13/19at 00:17; Start 07/12/19 at 14:45 Terbutaline Sulfate (Brethine) 0.25 mg 1X PRN PRN SQ SEE COMMENTS; Start 07/12/19 at 14:45; Stop 07/13/19 at 14:44 Lidocaine HCl (Xylocaine 1% Pf 30ml Vial) 30 ml 1X PRN PRN INJ SEE COMMENTS; Start 07/12/19 at 14:45; Stop 07/14/19 at 14:44 Oxytocin/Sodium Chloride 500 ml @ 0 mls/hr CONT PRN IV SEE I/O RECORD Last administered on 07/13/19at 06:12; Start 07/12/19 at 14:45 Oxytocin/Sodium Chloride 500 ml @ 0 mls/hr CONT PRN PRN IV Post delivery bleeding; Start 07/12/19 at 14:45 Ibuprofen (Motrin) 800 mg PRN Q6HRS PRN PO MODERATE PAIN; Start 07/12/19 at 14:45 Dinoprostone (Cervidil) 10 mg 1X ONCE VG Last administered on 07/12/19at 16:19; Start 07/12/19 at 14:45; Stop 07/12/19 at 15:00; Status DC Acetaminophen (Tylenol) 650 mg PRN Q6HRS PRN PO HEADACHE Last administered on 07/12/19at 17:06; Start 07/12/19 at 16:30 Ampicillin Sodium 2 gm/Sodium Chloride 100 ml @ 200 mls/hr 1X ONCE IV Last administered on 07/12/19at 23:28; Start 07/13/19 at 00:00; Stop 07/13/19 at 00:29; Status DC Ampicillin Sodium 1 gm/Sodium Chloride 50 ml @ 100 mls/hr Q4HRS IV Last administered on 07/13/19at 12:48; Start 07/13/19 at 04:00 Ropivacaine (Naropin 0.2%) 10 ml STK-MED ONCE .ROUTE ; Start 07/13/19 at 10:14; Stop 07/13/19 at 10:15; Status DC Ropivacaine/ Fentanyl/NS 50 ml @ As Directed STK-MED ONCE .ROUTE ; Start 07/13/19 at 10:15; Stop 07/13/19 at 10:15; Status DC Ropivacaine/ Fentanyl/NS 50 ml @ 14 mls/hr CONT PRN EPID PAIN Last administered on 07/13/19at 13:29; Start 07/13/19 at 10:45; Stop 07/14/19 at 09:44 Ringer's Solution 1,000 ml @ 125 mls/hr Q8H IV Last administered on 07/13/19at 11:28; Start 07/13/19 at 10:37 Ephedrine Sulfate (ePHEDrine PF IN SALINE SYRINGE) 10 mg PRN Q2MIN PRN IV IF SBP<90; Start 07/13/19 at 10:45 Naloxone HCl (Narcan) 0.04 mg PRN Q1MIN PRN IV SEE COMMENTS; Start 07/13/19 at 10:45 Ropivacaine/ Sodium Chloride (ROPIVacaine 0.2% - 0.9%NACL PF) 40 mg PRN 1X PRN EPID SEE COMMENTS; Start 07/13/19 at 10:45 Active Scripts Active Cephalexin 500 Mg Capsule 1 Cap PO QID Mupirocin Ointment (Mupirocin) 22 Gm Oint...g. 1 Barbara TP TID Tablet (Pnv Cmb#95/Ferrous Fumarate/Fa) 1 Each Tablet 1 Tab PO DAILY Reglan (Metoclopramide Hcl) 10 Mg Tablet 10 Mg PO QID [place] 5-325 Tablet (Acetaminophen/Hydrocodone Bitart) 1 Each Tablet 1 Tab PO PRN Q6HRS PRN Naproxen 500 Mg Tablet 1 Tab PO BID [place] 5-325 Tablet (Acetaminophen/Hydrocodone Bitart) 1 Each Tablet 1 Tab PO PRN Q6HRS PRN Augmentin 875-125 Tablet (Amoxicillin/Potassium Clav) 1 Each Tablet 1 Tab PO BID Zofran Odt (Ondansetron) 4 Mg Tab.rapdis 1 Tab SL Q8HRS PRN Exam Pelvic: AROM. cvx 5/70/-3 IUPC placed. Assessment 38 wks IUP Gestational HTN Plan of Care: Continue current Tx, Mgmt ROD COURTNEY Jr, MD Jul 13, 2019 13:53
[2019-07-13] MEDS ORDERED: diphenhydrAMINE 50 MG/ML VIAL ONE (14:22)
[2019-07-13] MEDS ORDERED: diphenhydrAMINE 50 MG/ML VIAL IVP ONE (14:30)
[2019-07-13] MEDS ORDERED: miSOPROStol 200 MCG TABLET ONE (14:49)
--- NOTE | 2019-07-13 16:02 | PDOC ---
VAGINAL DELIVERY DATE DATE: 07/13/19 TIME: 15:57 : 2 Para: 1 EGA: 38 VAGINAL DELIVERY: VTX VACCUM ASSISTED: No PLACENTA: Spontaneous 8/9 SEX: Female WEIGHT Weight [3680 gm ] Nuchal Cord: No Amniotic Fluid: Clear PAIN: Epidural EPISIOTOMY: No EXTENSION: No EBL 300 ml COMPLICATIONS none CONDITION pt. stable Signs of Intrauterine Infectio: None Shoulder Dystocia: No ROD COURTNEY Jr, MD Jul 13, 2019 16:02
[2019-07-13] MEDS ORDERED: OXYTOCIN 30 UNIT/500 ML PREMIX 500 ML IV PRN (16:15)
[2019-07-13] MEDS ORDERED: MAGNESIUM HYDROXIDE 2,400 MG/30 ML ORAL.SUSP. PO PRN (16:15)
[2019-07-13] MEDS ORDERED: 0.9 % SODIUM CHLORIDE 10 ML DISP.SYRIN. IV PRN (16:15)
[2019-07-13] MEDS ORDERED: PHENYLEPH/MINERAL OIL/PETROLAT RECTAL OINTMENT TUBE. RC PRN (16:15)
[2019-07-13] MEDS ORDERED: diphenhydrAMINE HCL 25 MG CAPSULE PO PRN (16:15)
[2019-07-13] MEDS ORDERED: BENZOCAINE 20% TOPICAL AEROSOL SPRAY 57GM CAN. TP PRN (16:15)
[2019-07-13] MEDS ORDERED: ZOLPIDEM 5 MG TABLET. PO PRN (16:15)
[2019-07-13] MEDS ORDERED: IBUPROFEN 400 MG TABLET. PO PRN (16:15)
[2019-07-13] MEDS ORDERED: MMR per PROTOCOL. MC PRN (16:15)
[2019-07-13] MEDS ORDERED: oxyCODONE/APAP 5/325 1 TAB TABLET PO PRN (16:15)
[2019-07-13] MEDS ORDERED: SIMETHICONE 80 MG TAB.CHEW PO PRN (16:15)
[2019-07-13] MEDS ORDERED: HYDROCORTISONE 1% TOPICAL OINTMENT 30GM TUBE. TP PRN (16:15)
[2019-07-13] MEDS ORDERED: ACETAMINOPHEN 325 MG TABLET. PO PRN (16:15)
[2019-07-13] MEDS ORDERED: MAG HYDROX/ALUMINUM HYD/SIMETH 30 ML ORAL.SUSP PO PRN (16:15)
[2019-07-13 18:25] VITALS: BP 156/90
[2019-07-13 18:55] VITALS: BP 162/90
[2019-07-13 19:15] VITALS: BP 152/90
[2019-07-14] VITALS: BP 142/85
[2019-07-14] MEDS: IV RINGERS,LACTATED 1000ML 1,000 ML IV SCH ×6 (02:37→22:42)
[2019-07-14 04:00] VITALS: BP 114/67
[2019-07-14] MEDS: IBUPROFEN 400 MG TABLET. PO PRN ×3 (04:41→20:18)
[2019-07-14 05:03] LABS: BASO % 0 % (0-3); EOS # 0.1 x10^3/uL (0.0-0.7); EOS % 1 % (0-3); HEMATOCRIT 25.7 % (36.0-47.0); HEMOGLOBIN 8.7 g/dL (12.0-15.5); LYMPH # 2.4 x10^3/uL (1.0-4.8); LYMPH % 23 % (24-48); MEAN CORPUSCULAR HEMOGLOBIN 29 pg (25-35); MEAN CORPUSCULAR HGB CONC 34 g/dL (31-37); MEAN CORPUSCULAR VOLUME 86 fL (79-100); MONO # 1.3 x10^3/uL (0.0-1.1); MONO % 12 % (0-9); NEUT # 6.6 x10^3/uL (1.8-7.7); NEUT % 63 % (31-73); PLATELET COUNT 248 x10^3/uL (140-400); RED BLOOD COUNT 2.99 x10^6/uL (3.50-5.40); RED CELL DISTRIBUTION WIDTH 14.6 % (11.5-14.5); WHITE BLOOD COUNT 10.5 x10^3/uL (4.0-11.0)
[2019-07-14] MEDS: FERROUS SULFATE 325 MG TABLET. PO SCH ×2 (08:00→20:13)
--- NOTE | 2019-07-14 13:22 | PDOC ---
OB Progress Note Date of Service 07/14/19 Time of Evaluation 1320 Notes Pt. feeling well. No complaints. Lab Laboratory Tests Test 07/12/19 13:40 07/12/19 13:50 07/14/19 04:30 Urine Collection Type Unknown Urine Color Yellow Urine Clarity Clear Urine pH 6.5 Urine Specific [place] <=1.005 Urine Protein Negative mg/dL (NEG-TRACE) Urine Glucose (UA) Negative mg/dL (NEG) Urine Ketones (Stick) Negative mg/dL (NEG) Urine Blood Negative (NEG) Urine Nitrite Negative (NEG) Urine Bilirubin Negative (NEG) Urine Urobilinogen Dipstick 1.0 mg/dL (0.2 mg/dL) Urine Leukocyte Esterase Small (NEG) Urine RBC 1-2 /HPF (0-2) Urine WBC 5-10 /HPF (0-4) Urine Squamous Epithelial Cells Many /LPF Urine Bacteria Moderate /HPF (0-FEW) Urine Random Creatinine 42.0 mg/dL (Not Establ.) Urine Random Total Protein 8.0 mg/dL (Not Establ.) Urine Protein/Creatinine Ratio 190 mg/g (0-200) Urine Opiates Screen Neg (NEG) Urine Methadone Screen Neg (NEG) Urine Barbiturates Neg (NEG) Urine Phencyclidine Screen Neg (NEG) Urine Amphetamine/Methamphetamine Neg (NEG) Urine Benzodiazepines Screen Neg (NEG) Urine Cocaine Screen Neg (NEG) Urine Cannabinoids Screen Pos (NEG) Urine Ethyl Alcohol Neg (NEG) White Blood Count 8.1 x10^3/uL (4.0-11.0) 10.5 x10^3/uL (4.0-11.0) Red Blood Count 3.36 x10^6/uL (3.50-5.40) 2.99 x10^6/uL (3.50-5.40) Hemoglobin 9.8 g/dL (12.0-15.5) 8.7 g/dL (12.0-15.5) Hematocrit 29.1 % (36.0-47.0) 25.7 % (36.0-47.0) Mean Corpuscular Volume 87 fL (79-100) 86 fL (79-100) Mean Corpuscular Hemoglobin 29 pg (25-35) 29 pg (25-35) Mean Corpuscular Hemoglobin Concent 34 g/dL (31-37) 34 g/dL (31-37) Red Cell Distribution Width 14.7 % (11.5-14.5) 14.6 % (11.5-14.5) Platelet Count 293 x10^3/uL (140-400) 248 x10^3/uL (140-400) Neutrophils (%) (Auto) 68 % (31-73) 63 % (31-73) Lymphocytes (%) (Auto) 21 % (24-48) 23 % (24-48) Monocytes (%) (Auto) 8 % (0-9) 12 % (0-9) Eosinophils (%) (Auto) 1 % (0-3) 1 % (0-3) Basophils (%) (Auto) 1 % (0-3) 0 % (0-3) Neutrophils # (Auto) 5.6 x10^3/uL (1.8-7.7) 6.6 x10^3/uL (1.8-7.7) Lymphocytes # (Auto) 1.7 x10^3/uL (1.0-4.8) 2.4 x10^3/uL (1.0-4.8) Monocytes # (Auto) 0.7 x10^3/uL (0.0-1.1) 1.3 x10^3/uL (0.0-1.1) Eosinophils # (Auto) 0.1 x10^3/uL (0.0-0.7) 0.1 x10^3/uL (0.0-0.7) Basophils # (Auto) 0.1 x10^3/uL (0.0-0.2) 0.0 x10^3/uL (0.0-0.2) Sodium Level 137 mmol/L (136-145) Potassium Level 3.2 mmol/L (3.5-5.1) Chloride Level 103 mmol/L (98-107) Carbon Dioxide Level 24 mmol/L (21-32) Anion Gap 10 (6-14) Blood Urea Nitrogen 6 mg/dL (7-20) Creatinine 0.5 mg/dL (0.6-1.0) Estimated GFR (Cockcroft-Gault) 188.5 BUN/Creatinine Ratio 12 (6-20) Glucose Level 81 mg/dL (70-99) Uric Acid 3.1 mg/dL (2.6-6.0) Calcium Level 9.1 mg/dL (8.5-10.1) Total Bilirubin 0.8 mg/dL (0.2-1.0) Aspartate Amino Transf (AST/SGOT) 38 U/L (15-37) Alanine Aminotransferase (ALT/SGPT) 81 U/L (14-59) Alkaline Phosphatase 225 U/L (46-116) Total Protein 7.2 g/dL (6.4-8.2) Albumin 2.6 g/dL (3.4-5.0) Albumin/Globulin Ratio 0.6 (1.0-1.7) Laboratory Tests Test 07/14/19 04:30 White Blood Count 10.5 x10^3/uL (4.0-11.0) Red Blood Count 2.99 x10^6/uL (3.50-5.40) Hemoglobin 8.7 g/dL (12.0-15.5) Hematocrit 25.7 % (36.0-47.0) Mean Corpuscular Volume 86 fL (79-100) Mean Corpuscular Hemoglobin 29 pg (25-35) Mean Corpuscular Hemoglobin Concent 34 g/dL (31-37) Red Cell Distribution Width 14.6 % (11.5-14.5) Platelet Count 248 x10^3/uL (140-400) Neutrophils (%) (Auto) 63 % (31-73) Lymphocytes (%) (Auto) 23 % (24-48) Monocytes (%) (Auto) 12 % (0-9) Eosinophils (%) (Auto) 1 % (0-3) Basophils (%) (Auto) 0 % (0-3) Neutrophils # (Auto) 6.6 x10^3/uL (1.8-7.7) Lymphocytes # (Auto) 2.4 x10^3/uL (1.0-4.8) Monocytes # (Auto) 1.3 x10^3/uL (0.0-1.1) Eosinophils # (Auto) 0.1 x10^3/uL (0.0-0.7) Basophils # (Auto) 0.0 x10^3/uL (0.0-0.2) Medications Current Medications Sodium Chloride (Normal Saline Flush) 3 ml QSHIFT PRN IV AFTER MEDS AND BLOOD DRAWS; Start 07/12/19 at 13:45 Sodium Chloride (Normal Saline Flush) 3 ml QSHIFT PRN IV AFTER MEDS AND BLOOD DRAWS; Start 07/12/19 at 14:45; Status Cancel Ringer's Solution 1,000 ml @ 125 mls/hr Q8H IV Last administered on 07/13/19at 08:44; Start 07/12/19 at 14:42 Nalbuphine HCl (Nubain) 5 mg PRN Q1HR PRN IV Mild to moderate labor pain; Start 07/12/19 at 14:45; Stop 07/13/19 at 06:14; Status DC Nalbuphine HCl (Nubain) 10 mg PRN Q1HR PRN IV Severe labor pain; Start 07/12/19 at 14:45; Stop 07/13/19 at 06:14; Status DC Butorphanol Tartrate (Stadol) 1 mg PRN Q1HR PRN IV mild to moderate labor pain; Start 07/12/19 at 14:45; Stop 07/14/19 at 11:13; Status DC Butorphanol Tartrate (Stadol) 2 mg PRN Q1HR PRN IV Severe labor pain Last administered on 07/13/19at 05:42; Start 07/12/19 at 14:45; Stop 07/14/19 at 11:13; Status DC Fentanyl Citrate (Fentanyl 2ml Vial) 100 mcg PRN Q30MIN PRN IV Severe pain Last administered on 07/13/19at 00:17; Start 07/12/19 at 14:45 Terbutaline Sulfate (Brethine) 0.25 mg 1X PRN PRN SQ SEE COMMENTS; Start 07/12/19 at 14:45; Stop 07/13/19 at 14:44; Status DC Lidocaine HCl (Xylocaine 1% Pf 30ml Vial) 30 ml 1X PRN PRN INJ SEE COMMENTS; Start 07/12/19 at 14:45; Stop 07/14/19 at 14:44 Oxytocin/Sodium Chloride 500 ml @ 0 mls/hr CONT PRN IV SEE I/O RECORD Last administered on 07/13/19at 06:12; Start 07/12/19 at 14:45 Oxytocin/Sodium Chloride 500 ml @ 0 mls/hr CONT PRN PRN IV Post delivery bleeding; Start 07/12/19 at 14:45 Ibuprofen (Motrin) 800 mg PRN Q6HRS PRN PO MODERATE PAIN Last administered on 07/14/19at 12:41; Start 07/12/19 at 14:45 Dinoprostone (Cervidil) 10 mg 1X ONCE VG Last administered on 07/12/19at 16:19; Start 07/12/19 at 14:45; Stop 07/12/19 at 15:00; Status DC Acetaminophen (Tylenol) 650 mg PRN Q6HRS PRN PO HEADACHE Last administered on 07/12/19at 17:06; Start 07/12/19 at 16:30 Ampicillin Sodium 2 gm/Sodium Chloride 100 ml @ 200 mls/hr 1X ONCE IV Last administered on 07/12/19at 23:28; Start 07/13/19 at 00:00; Stop 07/13/19 at 00:29; Status DC Ampicillin Sodium 1 gm/Sodium Chloride 50 ml @ 100 mls/hr Q4HRS IV Last ad ministered on 07/13/19at 12:48; Start 07/13/19 at 04:00; Stop 07/14/19 at 11:13; Status DC Ropivacaine (Naropin 0.2%) 10 ml STK-MED ONCE .ROUTE ; Start 07/13/19 at 10:14; Stop 07/13/19 at 10:15; Status DC Ropivacaine/ Fentanyl/NS 50 ml @ As Directed STK-MED ONCE .ROUTE ; Start 07/13/19 at 10:15; Stop 07/13/19 at 10:15; Status DC Ropivacaine/ Fentanyl/NS 50 ml @ 14 mls/hr CONT PRN EPID PAIN Last administered on 07/13/19at 13:29; Start 07/13/19 at 10:45; Stop 07/14/19 at 09:44; Status DC Ringer's Solution 1,000 ml @ 125 mls/hr Q8H IV Last administered on 07/13/19at 11:28; Start 07/13/19 at 10:37 Ephedrine Sulfate (ePHEDrine PF IN SALINE SYRINGE) 10 mg PRN Q2MIN PRN IV IF SBP<90; Start 07/13/19 at 10:45 Naloxone HCl (Narcan) 0.04 mg PRN Q1MIN PRN IV SEE COMMENTS; Start 07/13/19 at 10:45 Ropivacaine/ Sodium Chloride (ROPIVacaine 0.2% - 0.9%NACL PF) 40 mg PRN 1X PRN EPID SEE COMMENTS; Start 07/13/19 at 10:45 Diphenhydramine HCl (Benadryl) 50 mg STK-MED ONCE .ROUTE ; Start 07/13/19 at 14:22; Stop 07/13/19 at 14:22; Status DC Diphenhydramine HCl (Benadryl) 50 mg 1X ONCE IVP Last administered on 07/13/19at 14:27; Start 07/13/19 at 14:30; Stop 07/13/19 at 14:31; Status DC Misoprostol (Cytotec 200mcg Tab) 200 mcg STK-MED ONCE .ROUTE ; Start 07/13/19 at 14:49; Stop 07/13/19 at 14:49; Status DC Sodium Chloride (Normal Saline Flush) 10 ml QSHIFT PRN IV AFTER MEDS AND BLOOD DRAWS; Start 07/13/19 at 16:15 Oxytocin/Sodium Chloride 500 ml @ 62.5 mls/hr CONT PRN IV SEE I/O RECORD; Start 07/13/19 at 16:15; Stop 07/14/19 at 00:14; Status DC Acetaminophen (Tylenol) 650 mg PRN Q6HRS PRN PO MILD PAIN / TEMP; Start 07/13/19 at 16:15; Status UNV Ibuprofen (Motrin) 800 mg PRN Q8HRS PRN PO INFLAMMATION/PAIN PREVENTION; Start 07/13/19 at 16:15; Status UNV Docusate Sodium (Colace) 100 mg PRN BID PRN PO CONSTIPATION; Start 07/13/19 at 16:15 Magnesium Hydroxide (Milk Of Magnesia) 2,400 mg PRN DAILY PRN PO CONSTIPATION; Start 07/13/19 at 16:15 Al Hydroxide/Mg Hydroxide (Mylanta Plus Xs) 30 ml PRN Q4HRS PRN PO HEARTBURN / GAS; Start 07/13/19 at 16:15 Simethicone (Gas-X) 80 mg PRN AFTMEALHC PRN PO GAS / BLOATING; Start 07/13/19 at 16:15 Diphenhydramine HCl (Benadryl) 25 mg PRN Q6HRS PRN PO ITCHING; Start 07/13/19 at 16:15 Benzocaine (Americaine) 1 spray PRN QID PRN TP TOPICAL PAIN; Start 07/13/19 at 16:15 Phenyleph/Shark Oil/Min Oil/Petrol (Preparation H) 1 barbara PRN QID PRN RC RECTAL PAIN; Start 07/13/19 at 16:15 Hydrocortisone (Cortaid) 1 barbara PRN QID PRN TP PERINEAL PAIN; Start 07/13/19 at 16:15 Ferrous Sulfate (Feosol) 325 mg BIDWMEALS PO ; Start 07/14/19 at 08:00 Zolpidem Tartrate (Ambien) 5 mg PRN QHS PRN PO INSOMNIA, MAY REPEAT X1; Start 07/13/19 at 16:15 Info (Do NOT chart on this placeholder) 1 ea 1X PRN PRN MC SEE COMMENTS; Start 07/13/19 at 16:15 Info (Do NOT chart on this placeholder) 1 ea 1X PRN PRN MC SEE COMMENTS; Start 07/13/19 at 16:15 Oxycodone/ Acetaminophen (Percocet 5/325) 2 tab PRN Q4HRS PRN PO MODERATE PAIN, SEVERE PAIN; Start 07/13/19 at 16:15 Active Scripts Active Cephalexin 500 Mg Capsule 1 Cap PO QID Mupirocin Ointment (Mupirocin) 22 Gm Oint...g. 1 Barbara TP TID Tablet (Pnv Cmb#95/Ferrous Fumarate/Fa) 1 Each Tablet 1 Tab PO DAILY Reglan (Metoclopramide Hcl) 10 Mg Tablet 10 Mg PO QID [place] 5-325 Tablet (Acetaminophen/Hydrocodone Bitart) 1 Each Tablet 1 Tab PO PRN Q6HRS PRN Naproxen 500 Mg Tablet 1 Tab PO BID [place] 5-325 Tablet (Acetaminophen/Hydrocodone Bitart) 1 Each Tablet 1 Tab PO PRN Q6HRS PRN Augmentin 875-125 Tablet (Amoxicillin/Potassium Clav) 1 Each Tablet 1 Tab PO BID Zofran Odt (Ondansetron) 4 Mg Tab.rapdis 1 Tab SL Q8HRS PRN Exam Abd: soft, non tender, fundus firm Assessment PPD#1 s/p Plan of Care: Continue current Tx, Mgmt ROD COURTNEY Jr, MD Jul 14, 2019 13:22
[2019-07-14] MEDS: ACETAMINOPHEN 325 MG TABLET. PO PRN (16:19)
[2019-07-14 17:13] VITALS: BP 145/102
[2019-07-14] MEDS: DOCUSATE SODIUM 100 MG CAPSULE. PO PRN (20:18)
[2019-07-15] VITALS: BP 139/85
[2019-07-15 05:10] VITALS: BP 137/83
[2019-07-15] MEDS: DOCUSATE SODIUM 100 MG CAPSULE. PO PRN (09:21)
[2019-07-15] MEDS: FERROUS SULFATE 325 MG TABLET. PO SCH (09:22)
[2019-07-15] MEDS: IBUPROFEN 400 MG TABLET. PO PRN (09:23)
[2019-07-15 11:52] VITALS: BP 136/88
--- NOTE | 2019-07-15 12:33 | NUR ---
SS following up with referral regarding "mother UDS positive for Marijuana. SS reviewed mother chart. Mother positive for Marijuana. Mother reported good family support. Mother reported that she stays at home with her children and infants father financially supports. Mother reported that she has Medicaid and WIC and has good transportation. Mother reported that infant will be [facility] at [facility] for pediatric[facility]. Mother reported that she has car seat, diapers, wipes, and all needed supplies for infant. Mother reported that she will formula feed . Mother denied any behavioral health history. [facility] hotline report made for positive Marijuana. Intake# [id number]. Mother and RN notified.
[2019-07-15] MEDS ORDERED: HYDR-3164 PO (14:08)
[2019-07-15] MEDS ORDERED: NAPR-514 PO (14:08)
--- NOTE | 2019-07-15 14:09 | PDOC3 ---
OB DISCHARGE SUMMARY DATE OF ADMISSION: 04/11/19 DATE OF DISCHARGE: 04/14/19 REASON FOR ADMISSION: Onset of labor PROCEDURES: Ultrasound INTRAPARTUM PROCEDURES: Spontanous Vag Deliv OPERATIONS: None DISCHARGE DIAGNOSIS: Term Delivered DISCHARGE INFORMATION: Activity, Diet HOSPITAL COURSE Unremarkable CONDITION AT DISCHARGE Stable MARISOL PALACIOS MD Jul 15, 2019 14:09
[2019-07-15 14:37] VITALS: BP 132/86
--- NOTE | 2019-07-15 15:15 | NUR ---
Discharge Note: NB secure in car seat, Pt. and significant other provided with car seat education, demonstrated proper tightening of car seat straps. Pt. and significant other escorted by RN to vehicle with NB and belongings present. NB in back seat of vehicle, rear facing on car seat base. Pt. discharged home with NB and family. Victorina Cantu RN
== END 2019-07-15 15:15 | disposition home or self-care (01) | DRG 807 ==
LOC: OBSVTOIN 12:25 → 3 SO LND 12:25 → 3 NORTH 07-13 18:15
PROVIDERS: ADMIT Specialist; ATTEND Specialist
PROC: 10E0XZZ Delivery of Products of Conception, External Approach (ICD-10-PCS; principal; 2019-07-13)
PROC: 10907ZC Drainage of Amniotic Fluid, Therapeutic from Products of Conception, Via Natural or Artificial Opening (ICD-10-PCS; 2019-07-13)
PROC: 3E033VJ Introduction of Other Hormone into Peripheral Vein, Percutaneous Approach (ICD-10-PCS; 2019-07-13)
PROC: 00HU33Z Insertion of Infusion Device into Spinal Canal, Percutaneous Approach (ICD-10-PCS; 2019-07-13)
PROC: 3E0R3BZ Introduction of Anesthetic Agent into Spinal Canal, Percutaneous Approach (ICD-10-PCS; 2019-07-13)
DX: O13.4 Gestational [pregnancy-induced] hypertension without significant proteinuria, complicating childbirth (principal); Z37.0 Single live birth; O99.824 Streptococcus B carrier state complicating childbirth; Z3A.38 38 weeks gestation of pregnancy
CPT/HCPCS: 36415; 80053; 80307; 81001; 82570; 84156; 84550; 85025; 86850; 86900; 86901; 87086; J0290; J1200; J2590; J3010; J7120; G0378

== ENCOUNTER 2019-10-02 16:52 | Emergency (ER) | payer OTHER ==
[~2019-10-02] VITALS: Ht 172.7 cm; Wt 77.1 kg
[2019-10-02 17:14] VITALS: BP 172/97
[2019-10-02] MEDS ORDERED: LIDOCAINE 2% 20 ML VIAL. IJ STA (17:59)
[2019-10-02] MEDS ORDERED: CEPH-264 PO (18:22)
--- NOTE | 2019-10-02 18:22 | PHYS DOC ---
Past Medical History Past Medical History: No Pertinent History Additional Past Medical Histor: Multiple abscess's (LANE LO APRN) Past Surgical History: No Surgical History (LANE LO APRN) Alcohol Use: None Drug Use: None (LANE LO APRN) Attending Signature I have participated in the care of this patient and I have reviewed and agree with all pertinent clinical information above including history, exam, and recommendations. (GILBERT MOYER MD) Adult General Chief Complaint Chief Complaint: INSECT BITE HPI HPI Patient is a 24 year old female who presents with rectal abscess. She states that this been ongoing for 2 days. She states she's had this previously. She reports her pain as 8 out of 10 in severity. (LANE LO APRN) Review of Systems Review of Systems Constitutional: Denies fever or chills [] Eyes: Denies change in visual acuity, redness, or eye pain [] HENT: Denies nasal congestion or sore throat [] Respiratory: Denies cough or shortness of breath [] Cardiovascular: No additional information not addressed in HPI [] GI: Denies abdominal pain, nausea, vomiting, bloody stools or diarrhea [] : Denies dysuria or hematuria [] Musculoskeletal: Denies back pain or joint pain [] Integument: Reports rectal abscess. Neurologic: Denies headache, focal weakness or sensory changes [] Endocrine: Denies polyuria or polydipsia [] Complete systems were reviewed and found to be within normal limits, except as documented in this note. (LANE LO APRN) Current Medications Current Medications Current Medications Medications (Trade) Dose Ordered Sig/Dinesh Start Time Stop Time Status Last Admin Dose Admin Lidocaine HCl 20 ml 1X STAT 10/02/19 17:59 10/02/19 18:01 DC 10/02/19 17:59 20 ML (GILBERT MOYER MD) Allergies Allergies Allergies Coded Allergies Type Severity Reaction Last Updated Verified No Known Drug Allergies 10/10/16 No (GILBERT MOYER MD) Physical Exam Physical Exam Constitutional: Well developed, well nourished, no acute distress, non-toxic appearance. [] HENT: Normocephalic, atraumatic, bilateral external ears normal, oropharynx moist, no oral exudates, nose normal. [] Eyes: PERRLA, EOMI, conjunctiva normal, no discharge. [] Neck: Normal range of motion, no tenderness, supple, no stridor. [] Skin: abscess to left gluteal cheek. Back: No tenderness, no CVA tenderness. [] Extremities: No tenderness, no cyanosis, no clubbing, ROM intact, no edema. [] Neurologic: Alert and oriented X 3, normal motor function, normal sensory function, no focal deficits noted. [] Psychologic: Affect normal, judgement normal, mood normal. [] (LANE LO APRN) Current Patient Data Vital Signs Vital Signs Date Time Temp Pulse Resp B/P (MAP) Pulse Ox O2 Delivery O2 Flow Rate FiO2 10/02/19 17:14 98.6 106 16 172/97 (122) 100 Room Air 98.6 (GILBERT MOYER MD) EKG EKG [] (LANE LO APRN) Radiology/Procedures Radiology/Procedures Indication: abscess Procedure: The patient was positioned appropriately. Local anesthesia was 2% lidocaine. An incision was then made over the apex of the lesion and copious material was expressed. The drainage cavity was irrigated and packed with sterile gauze. The patients tetanus status updated as needed. The patient tolerated the procedure well. Complications: none.[] (LANE LO APRN) Course & Med Decision Making Course & Med Decision Making Pertinent Labs and Imaging studies reviewed. (See chart for details) Will drain abscess and d/c with keflex. (LANE LO APRN) Dragon Disclaimer Dragon Disclaimer This electronic medical record was generated, in whole or in part, using a voice recognition dictation system. (LANE LO APRN) Departure Departure Impression: Primary Impression: Luz-rectal abscess Disposition: HOME, SELF-CARE Condition: STABLE Referrals: NO PCP (PCP) Patient Instructions: Abscess, Care After Additional Instructions: Thank you for visiting [facility]. We appreciate you trusting us with your care. If any additional problems come up don't hesitate to return to visit us. Please follow up with your primary care provider so they can plan additional care if needed and know about the problem that you had. If symptoms worsen come back to the Emergency Department. Any concerning symptoms that start such as chest pain, shortness of air, weakness or numbness on one side of the body, running high fevers or any other concerning symptoms return to the ER. You have been prescribed an antibiotic today to help fight your infection. Please take all of the antibiotic as directed. If after 48 hours the infection is not improving, please return for more care. If the infection worsens, return to ER for additional care. Please return in 3 days to have packing removed. Scripts Cephalexin (KEFLEX) 500 Mg Capsule 500 MG PO QID for 7 Days, #28 CAP Prov: LANE LO APRN 10/02/19 LANE LO APRN Oct 02, 2019 18:22 GILBERT MOYER MD Oct 03, 2019 03:42
== END 2019-10-02 19:07 | disposition home or self-care (01) ==
LOC: ER 16:52
DX: K61.1 Rectal abscess (principal)
CPT/HCPCS: 46040; 99284; J2001; 99283

== ENCOUNTER 2019-12-05 23:14 | Emergency (ER) | payer OTHER ==
[~2019-12-05] VITALS: Ht 172.7 cm; Wt 95.0 kg
[~2019-12-05 23:14] MED LIST changes: +CEPH-264 PO
[2019-12-05 23:44] LABS: BILIRUBIN,URINE SMALL (NEG); CLARITY,URINE CLEAR; COLOR,URINE YELLOW; NITRITE,URINE NEGATIVE (NEG); PH,URINE 6.5; PROTEIN,URINE 30 mg/dL (NEG-TRACE)
[2019-12-05] MEDS ORDERED: cefTRIAXone IM 1 GM VIAL IM ONE (23:45)
[2019-12-05] MEDS ORDERED: metroNIDAZOLE 500 MG TABLET PO ONE (23:45)
[2019-12-05] MEDS ORDERED: AZITHROMYCIN 250 MG TABLET. PO ONE (23:45)
[2019-12-05 23:48] LABS: BACTERIA,URINE MANY /HPF (0-FEW); SQUAMOUS EPITHELIAL CELL,UR MANY /LPF
[2019-12-05 23:49] LABS: RBC,URINE OCC /HPF (0-2); WBC,URINE OCC /HPF (0-4)
--- NOTE | 2019-12-06 00:17 | PHYS DOC ---
Past Medical History Past Medical History: No Pertinent History Additional Past Medical Histor: Multiple abscess's (SIERRA BOB APRN) Past Surgical History: No Surgical History (SIERRA BOB APRN) Smoking Status: Never Smoker Alcohol Use: None Drug Use: None (SIERRA BOB APRN) Attending Signature I have participated in the care of this patient and I have reviewed and agree with all pertinent clinical information above including history, exam, and recommendations. (GILBERT MOYER MD) Adult General Chief Complaint Chief Complaint: SEXUALLY TRANSMITTED DISEASE HPI HPI Patient is a 24 year old female who presents to the ED today to be evaluated for STDs. Patient reports the boyfriend's mother informed her the boyfriend is running around with other women. Patient denies any symptoms. (SIERRA BOB APRN) Review of Systems Review of Systems Constitutional: Denies fever or chills [] GI:Request for STD evaluation and treatment. Denies abdominal pain, nausea, vomiting, bloody stools or diarrhea [] : Denies dysuria or hematuria [] Musculoskeletal: Denies back pain or joint pain [] Integument: Denies rash or skin lesions [] Neurologic: Denies headache, focal weakness or sensory changes [] All other systems were reviewed and found to be within normal limits, except as documented in this note. (SIERRA BOB APRN) Current Medications Current Medications Current Medications Medications (Trade) Dose Ordered Sig/Dinesh Start Time Stop Time Status Last Admin Dose Admin Azithromycin (Zithromax) 1,000 mg 1X ONCE 12/05/19 23:45 12/05/19 23:46 DC 12/06/19 00:55 1,000 MG Ceftriaxone Sodium (Rocephin Im) 1 gm 1X ONCE 12/06/19 00:50 12/06/19 01:08 DC 12/06/19 01:05 1 GM Metronidazole (Flagyl) 2,000 mg 1X ONCE 12/05/19 23:45 12/05/19 23:46 DC 12/06/19 00:55 2,000 MG (GILBERT MOYER MD) Allergies Allergies Allergies Coded Allergies Type Severity Reaction Last Updated Verified No Known Drug Allergies 10/10/16 No (GILBERT MOYER MD) Physical Exam Physical Exam Constitutional: Well developed, well nourished, no acute distress, non-toxic appearance. [] Abdomen: Bowel sounds normal, soft, no tenderness, no masses, no pulsatile masses. [] Pelvic exam:external pelvic appears normal, cervix is patient was, nose, no CMT, no adnexal tenderness, trace amount of white discharge in the vaginal vault Skin: Warm, dry, no erythema, no rash. [] Back: No tenderness, no CVA tenderness. [] Extremities: No tenderness, no cyanosis, no clubbing, ROM intact, no edema. [] Neurologic: Alert and oriented X 3, normal motor function, normal sensory function, no focal deficits noted. [] Psychologic: Affect normal, judgement normal, mood normal. [] (SIERRA BOB APRN) Current Patient Data Vital Signs Vital Signs Date Time Temp Pulse Resp B/P (MAP) Pulse Ox O2 Delivery O2 Flow Rate FiO2 12/06/19 01:25 91 16 166/86 (112) 99 Room Air 12/05/19 23:20 98.1 98.1 (GILBERT MOYER MD) Lab Values Laboratory Tests Test 12/05/19 23:20 12/05/19 23:27 Urine Collection Type Unknown Urine Color Yellow Urine Clarity Clear Urine pH 6.5 Urine Specific [place] >=1.030 Urine Protein 30 mg/dL (NEG-TRACE) Urine Glucose (UA) Negative mg/dL (NEG) Urine Ketones (Stick) Trace mg/dL (NEG) Urine Blood Negative (NEG) Urine Nitrite Negative (NEG) Urine Bilirubin Small (NEG) Urine Urobilinogen Dipstick 2.0 mg/dL (0.2 mg/dL) Urine Leukocyte Esterase Negative (NEG) Urine RBC Occ /HPF (0-2) Urine WBC Occ /HPF (0-4) Urine Squamous Epithelial Cells Many /LPF Urine Bacteria Many /HPF (0-FEW) Urine Mucus Marked /LPF POC Urine HCG, Qualitative Hcg positive (Negative) Microbiology 12/05/19 Wet Prep - Final, Complete (GILBERT MOYER MD) EKG EKG [] (SIERRA BOB APRN) Radiology/Procedures Radiology/Procedures [] (SIERRA BOB APRN) Course & Med Decision Making Course & Med Decision Making Pertinent Labs and Imaging studies reviewed. (See chart for details) This is a 24-year-old female patient presenting to the ED today for STD evaluation and treatment. + urine hCG 1 miscarriage, UA negative for infection. Wet prep noted for BV. Given the standard STD treatment. OB ultrasound- No pole or gestational sac seen though this could be an early IUP considering she just missed her Nov period. Follow-up with PCP in 1-2 weeks and OBGYN next week. (SIERRA BOB APRN) Dragon Disclaimer Dragon Disclaimer This electronic medical record was generated, in whole or in part, using a voice recognition dictation system. (SIERRA BOB APRN) Departure Departure Impression: Primary Impression: Bacterial vaginosis Additional Impressions: Concern about STD in female without diagnosis Disposition: HOME, SELF-CARE Condition: STABLE Referrals: NO PCP (PCP) follow up with your doctor in 1-2 weeks Patient Instructions: ABCs of , Bacterial Vaginosis, [id number], Sexually Transmitted Disease Additional Instructions: You were evaluated in the emergency room and noted to have bacterial vaginosis, you were treated for sexually transmitted diseases. Use protection at all times. Your prescription for Flagyl was sent to your pharmacy. Please follow up with your OBGYN for care. Start taking vitamins Scripts Metronidazole (FLAGYL) 500 Mg Tablet 1 TAB PO BID, #10 TAB Prov: SIERRA BOB APRN 12/06/19 Problem Qualifiers Additional Impressions: Weeks of gestation: less than 8 weeks Qualified Codes: Z3A.01 - Less than 8 weeks gestation of SIERRA BOB APRN Dec 06, 2019 00:17 GILBERT MOYER MD Dec 06, 2019 02:56
[2019-12-06] MEDS ORDERED: METR500T PO (00:21)
[2019-12-06] MEDS ORDERED: cefTRIAXone IM 1 GM VIAL IM ONE (00:50)
--- NOTE | 2019-12-06 01:07 | RAD ---
Ultrasound (a 40 weeks and transvaginal ultrasound. HISTORY: Discharge Sonographic examination of the was performed by transabdominal and endovaginal technique multiple static images were obtained. OB ultrasound less than 14 weeks transabdominal: The uterus appears normal. The right ovary appears normal normal blood flow. The left ovary appears normal with normal blood flow. Transvaginal ultrasound. She: The endometrium is homogeneous measures 1.4 cm in thickness. There is no gestational sac. IMPRESSION: No evidence of . Recommend correlation with serial quantitative beta hCG. If the continues a follow-up ultrasound could be performed after the patient is 6 weeks . Electronically signed by: Obinna Ac III, MD (12/06/2019 1:03 AM) [id number]
[2019-12-06 01:25] VITALS: BP 166/86
[2019-12-09 19:09] LABS: GC PROBE Negative (Negative)
== END 2019-12-06 01:25 | disposition home or self-care (01) ==
LOC: ER 23:14
DX: Z20.2 Contact with and (suspected) exposure to infections with a predominantly sexual mode of transmission (principal); N76.0 Acute vaginitis; B96.89 Other specified bacterial agents as the cause of diseases classified elsewhere; Z3A.01 Less than 8 weeks gestation of pregnancy
CPT/HCPCS: 76801; 76817; 81001; 81025; 87491; 87591; 96372; 99285; J0696; Q0111; Q0144

== ENCOUNTER 2020-03-21 02:52 | Emergency (ER) | payer OTHER ==
[~2020-03-21] VITALS: Ht 172.7 cm; Wt 95.5 kg
[~2020-03-21 02:52] MED LIST changes: +METR500T PO
[2020-03-21 02:59] VITALS: BP 128/68
[2020-03-21] MEDS ORDERED: CLIN300C8 PO (03:12)
--- NOTE | 2020-03-21 03:12 | PHYS DOC ---
Past Medical History Past Medical History: No Pertinent History Additional Past Medical Histor: Multiple abscess's Past Surgical History: No Surgical History Smoking Status: Never Smoker Alcohol Use: None Drug Use: None General Adult EDM: Chief Complaint: SKIN RASH/ABSCESS HPI: HPI: Patient is a 24 year old female who presents with a tender swollen area in the crease of her buttocks. Patient states that she gets boils when she gets . Patient indicates that she is 13 weeks . She states that she first noticed that 3 days ago. She states that it is been the same size and location since it started. She rates pain at a 10 out of 10. She denies fever. [] Review of Systems: Review of Systems: Constitutional: Denies fever or chills. [] Respiratory: Denies cough or shortness of breath. [] Cardiovascular: Denies chest pain or edema. [] Integument: Positive boil/abscess. [] Neurologic: Denies headache, focal weakness or sensory changes. [] Heart Score: Risk Factors: Risk Factors: DM, Current or recent (<one month) smoker, HTN, HLP, family history of CAD, obesity. Risk Scores: Score 0 - 3: 2.5% MACE over next 6 weeks - Discharge Home Score 4 - 6: 20.3% MACE over next 6 weeks - Admit for Clinical Observation Score 7 - 10: 72.7% MACE over next 6 weeks - Early Invasive Strategies Allergies: Allergies: Allergies Coded Allergies Type Severity Reaction Last Updated Verified No Known Drug Allergies 10/10/16 No Physical Exam: PE: Constitutional: Well developed, well nourished, no acute distress, non-toxic appearance. [] Cardiovascular: Regular rate and rhythm [] Lungs & Thorax: Bilateral breath sounds clear to auscultation [] Skin: There is a tender, slightly indurated raised area at the crease of the buttocks approximately 5 inches cephalad from anal orifice. There is no fluctuance. [] Neurologic: Alert and oriented X 3, no focal deficits noted. [] EKG: EKG: [] Radiology/Procedures: Radiology/Procedures: [] Course & Med Decision Making: Course & Med Decision Making Pertinent Labs and Imaging studies reviewed. (See chart for details) [] Dragon Disclaimer: Dragon Disclaimer: This electronic medical record was generated, in whole or in part, using a voice recognition dictation system. Departure Departure Impression: Primary Impression: Luz-rectal abscess Disposition: 01 HOME, SELF-CARE Condition: STABLE Referrals: NO PCP (PCP) Patient Instructions: Abscess Scripts Clindamycin Hcl (CLINDAMYCIN HCL) 300 Mg Capsule 1 CAP PO QID, #40 CAP Prov: WOJCIECH CHOI Jr. DO 03/21/20 WOJCIECH CHOI Jr. DO March 21, 2020 03:12
[2020-03-22] MEDS ORDERED: ONDA4TAB12 PO (21:53)
[2020-03-22] MEDS ORDERED: ACET-704 PO (21:53)
== END 2020-03-21 03:19 | disposition home or self-care (01) ==
LOC: ER 02:52
DX: O26.891 Other specified pregnancy related conditions, first trimester (principal); K61.1 Rectal abscess; R21 Rash and other nonspecific skin eruption
CPT/HCPCS: 99283

== ENCOUNTER 2020-03-22 20:56 | Emergency (ER) | payer OTHER ==
[~2020-03-22] VITALS: Ht 172.7 cm; Wt 95.3 kg
[~2020-03-22 20:56] MED LIST changes: +CLIN300C8 PO
[2020-03-22] MEDS ORDERED: ONDA4TAB12 PO (21:53)
[2020-03-22] MEDS ORDERED: ACET-704 PO (21:53)
--- NOTE | 2020-03-22 21:53 | PHYS DOC ---
Past Medical History Past Medical History: No Pertinent History Additional Past Medical Histor: Multiple abscess's Past Surgical History: No Surgical History Smoking Status: Former Smoker Additional Information: quit smoking in November 2019 Alcohol Use: None Drug Use: None General Adult EDM: Chief Complaint: SKIN RASH/ABSCESS HPI: HPI: Patient is a 24 year old female who presents with complaint of abscess that is getting worse. Patient was seen here a couple of days ago for same complaint and was discharged home on antibiotics. Patient states that swelling is getting worse and now it feels soft in the center. She states that pain is getting worse as well and rates it an 8 out of 10. She denies any fever. [] Review of Systems: Review of Systems: Constitutional: Denies fever or chills. [] Respiratory: Denies cough or shortness of breath. [] Cardiovascular: Denies chest pain or edema. [] Integument: Positive abscess. [] Neurologic: Denies headache, focal weakness or sensory changes. [] Heart Score: Risk Factors: Risk Factors: DM, Current or recent (<one month) smoker, HTN, HLP, family history of CAD, obesity. Risk Scores: Score 0 - 3: 2.5% MACE over next 6 weeks - Discharge Home Score 4 - 6: 20.3% MACE over next 6 weeks - Admit for Clinical Observation Score 7 - 10: 72.7% MACE over next 6 weeks - Early Invasive Strategies Allergies: Allergies: Allergies Coded Allergies Type Severity Reaction Last Updated Verified No Known Drug Allergies 10/10/16 No Physical Exam: PE: Constitutional: Well developed, well nourished, no acute distress, non-toxic appearance. [] Cardiovascular:Heart rate regular rhythm, no murmur [] Lungs & Thorax: Bilateral breath sounds clear to auscultation [] Skin: There is a gluteal cleft abscess just to the right of the midline. It measures approximately 3 cm in diameter with induration and central fluctuance. [] Neurologic: Alert and oriented X 3, normal motor function, normal sensory function, no focal deficits noted. [] Current Patient Data: Vital Signs: Vital Signs Date Time Temp Pulse Resp B/P (MAP) Pulse Ox O2 Delivery O2 Flow Rate FiO2 03/22/20 21:09 98.9 100 20 99 Room Air 98.9 EKG: EKG: [] Radiology/Procedures: Radiology/Procedures: [] Course & Med Decision Making: Course & Med Decision Making Pertinent Labs and Imaging studies reviewed. (See chart for details) Abscess was cleaned and draped in normal sterile fashion and after anesthetizing with 1% lidocaine with epinephrine, wound was incised utilizing 11 blade and loculations were broken up with blunt forceps. Moderate amount of purulent drainage was expressed from wound. Wound was then packed utilizing 1/4 inch iodoform gauze. Dragon Disclaimer: Dragon Disclaimer: This electronic medical record was generated, in whole or in part, using a voice recognition dictation system. Departure Departure Impression: Primary Impression: Luz-rectal abscess Disposition: HOME, SELF-CARE Condition: STABLE Referrals: NO PCP (PCP) Patient Instructions: Luz-Rectal Abscess Scripts Acetaminophen With Codeine (TYLENOL WITH CODEINE #3 TABLET) 1 Each Tablet 1 TAB PO PRN Q6HRS PRN for PAIN, #15 TAB Prov: WOJCIECH CHOI Jr. DO 03/22/20 Ondansetron (ONDANSETRON ODT) 4 Mg Tab.rapdis 1 TAB PO PRN Q6-8HRS PRN for NAUSEA, #15 TAB Prov: WOJCIECH CHOI Jr. DO 03/22/20 WOJCIECH HCOI Jr. DO March 22, 2020 21:53
[2020-03-22 21:58] VITALS: BP 130/71
== END 2020-03-22 21:58 | disposition home or self-care (01) ==
LOC: ER 20:56
DX: K61.1 Rectal abscess (principal); Z87.891 Personal history of nicotine dependence
CPT/HCPCS: 46040; 99284

== ENCOUNTER 2020-03-30 07:51 | Emergency (ER) | payer OTHER ==
[~2020-03-30] VITALS: Ht 172.7 cm; Wt 95.0 kg
[~2020-03-30 07:51] MED LIST changes: +ACET-704 PO; +ONDA4TAB12 PO
[2020-03-30 08:28] LABS: BILIRUBIN,URINE SMALL (NEG); CLARITY,URINE CLOUDY; COLOR,URINE AMBER; NITRITE,URINE NEGATIVE (NEG); PH,URINE 6.5 (<5.0-8.0); PROTEIN,URINE 30 mg/dL (NEG-TRACE)
[2020-03-30 08:41] LABS: BACTERIA,URINE MOD /HPF (0-FEW)
--- NOTE | 2020-03-30 09:11 | RAD ---
Limited OB ultrasound study Clinical indications: . Vaginal bleeding. COMPARISON: None available. Findings: A single intrauterine fetus is seen in cephalic position. heart rate is 150 beats per minute. BPD is 3.04 cm which equals 15 weeks 4 days. HC is 10.95 cm which equals 15 weeks 2 days. AC is 9.82 cm which equals 15 weeks 6 days. FL is 1.80 cm which equals 15 weeks 2 days. Average gestational age by ultrasound is 15 weeks 4 days +/- 10 days with an EDC of September 17, 2020. EDC by LMP is September 14, 2020.. Estimated weight is 0 lbs and 5 oz. anatomy was not evaluated. BISHOP using the four quadrant method is 9.5 cm. Cervical length is 4.8 cm. There is a 2.7 cm x 4.3 cm x 2.7 cm extra chorionic hemorrhage covering the cervical internal os. A grade 0 anterior placenta is seen. No placenta previa and no placenta abruptio is identified. Both maternal ovaries are visualized and normal. Impression: Single IUP in cephalic presentation with approximate gestational age of 15 weeks 4 days. heart rate is 150 bpm. 4.3 cm extra chorionic hemorrhage covering the cervical internal os. Electronically signed by: Nelson Moreira MD (03/30/2020 9:08 AM) [id number]
[2020-03-30 09:23] LABS: BASO % 1 % (0-3); EOS # 0.1 x10^3/uL (0.0-0.7); EOS % 2 % (0-3); HEMATOCRIT 32.5 % (36.0-47.0); HEMOGLOBIN 11.1 g/dL (12.0-15.5); LYMPH # 1.5 x10^3/uL (1.0-4.8); LYMPH % 23 % (24-48); MEAN CORPUSCULAR HEMOGLOBIN 30 pg (25-35); MEAN CORPUSCULAR HGB CONC 34 g/dL (31-37); MEAN CORPUSCULAR VOLUME 88 fL (79-100); MONO # 0.6 x10^3/uL (0.0-1.1); MONO % 10 % (0-9); NEUT # 4.1 x10^3/uL (1.8-7.7); NEUT % 65 % (31-73); PLATELET COUNT 314 x10^3/uL (140-400); RED BLOOD COUNT 3.71 x10^6/uL (3.50-5.40); RED CELL DISTRIBUTION WIDTH 14.6 % (11.5-14.5); WHITE BLOOD COUNT 6.3 x10^3/uL (4.0-11.0)
[2020-03-30] MEDS ORDERED: NITR100C62 PO (09:34)
[2020-03-30 09:53] VITALS: BP 117/75
--- NOTE | 2020-03-30 10:34 | PHYS DOC ---
Past Medical History Past Medical History: No Pertinent History Additional Past Medical Histor: Multiple abscess's Past Surgical History: No Surgical History Smoking Status: Former Smoker Alcohol Use: None Drug Use: None General Adult EDM: Chief Complaint: VAGINAL BLEEDING HPI: HPI: Patient is a 24 year old female G3, P2 at 14 weeks gestation who presents with vaginal bleeding that started this morning. Patient states that she had some bright red and brownish bleeding. She denies any trauma. She has not had any bleeding during this . She is not had any vaginal discharge. She has never required RhoGam previously. She is following with Dr. Perea at [facility]. Review of Systems: Review of Systems: General: Denies fever, chills, sweats, fatigue Eyes: Denies drainage, blurred vision HENT: Denies rhinorrhea, sore throat Respiratory: Denies cough, shortness of breath, wheezing Cardiac: Denies edema, palpitations, chest pain GI: Denies abdominal pain, N/V MSK: Denies back pain, neck pain Skin: Denies rash, jaundice Neuro: Denies headache, dizziness Psychiatric: Denies SI/HI Heart Score: Risk Factors: Risk Factors: DM, Current or recent (<one month) smoker, HTN, HLP, family history of CAD, obesity. Risk Scores: Score 0 - 3: 2.5% MACE over next 6 weeks - Discharge Home Score 4 - 6: 20.3% MACE over next 6 weeks - Admit for Clinical Observation Score 7 - 10: 72.7% MACE over next 6 weeks - Early Invasive Strategies Allergies: Allergies: Allergies Coded Allergies Type Severity Reaction Last Updated Verified No Known Drug Allergies 10/10/16 No Physical Exam: PE: Constitutional: Well developed, well nourished, Cooperative, NAD, non-toxic appearing HEENT: Normocephalic, atraumatic, oropharynx moist, EOMI, PERRL, no drainage from eyes, normal conjunctiva Neck: Supple, normal range of motion, no stridor Cardiovascular: RRR, 2+ radial pulses bilaterally, no edema Respiratory: CTA bilaterally, no respiratory distress, no wheezing/crackles Abdomen: Soft, nontender, nondistended, no masses Skin: Warm, dry, intact Extremities: No obvious deformities Neurologic: Alert and Oriented x3, motor and sensory function grossly normal, no focal deficits Psychologic: Normal affect, normal judgment, normal mood. No SI/HI Current Patient Data: Labs: Laboratory Tests Test 03/30/20 07:53 03/30/20 08:13 03/30/20 09:15 Urine Collection Type Unknown Urine Color Kitty Urine Clarity Cloudy Urine pH 6.5 (<5.0-8.0) Urine Specific [place] >=1.030 (1.000-1.030) Urine Protein 30 mg/dL (NEG-TRACE) Urine Glucose (UA) Negative mg/dL (NEG) Urine Ketones (Stick) Negative mg/dL (NEG) Urine Blood Moderate (NEG) Urine Nitrite Negative (NEG) Urine Bilirubin Small (NEG) Urine Urobilinogen Dipstick 1.0 mg/dL (0.2 mg/dL) Urine Leukocyte Esterase Moderate (NEG) Urine RBC 6-10 /HPF (0-2) Urine WBC 11-20 /HPF (0-4) Urine Bacteria Mod /HPF (0-FEW) POC Urine HCG, Qualitative Hcg positive (Negative) White Blood Count 6.3 x10^3/uL (4.0-11.0) Red Blood Count 3.71 x10^6/uL (3.50-5.40) Hemoglobin 11.1 g/dL (12.0-15.5) L Hematocrit 32.5 % (36.0-47.0) L Mean Corpuscular Volume 88 fL (79-100) Mean Corpuscular Hemoglobin 30 pg (25-35) Mean Corpuscular Hemoglobin Concent 34 g/dL (31-37) Red Cell Distribution Width 14.6 % (11.5-14.5) H Platelet Count 314 x10^3/uL (140-400) Neutrophils (%) (Auto) 65 % (31-73) Lymphocytes (%) (Auto) 23 % (24-48) L Monocytes (%) (Auto) 10 % (0-9) H Eosinophils (%) (Auto) 2 % (0-3) Basophils (%) (Auto) 1 % (0-3) Neutrophils # (Auto) 4.1 x10^3/uL (1.8-7.7) Lymphocytes # (Auto) 1.5 x10^3/uL (1.0-4.8) Monocytes # (Auto) 0.6 x10^3/uL (0.0-1.1) Eosinophils # (Auto) 0.1 x10^3/uL (0.0-0.7) Basophils # (Auto) 0.0 x10^3/uL (0.0-0.2) Laboratory Tests 03/30/20 09:15 Vital Signs: Vital Signs Date Time Temp Pulse Resp B/P (MAP) Pulse Ox O2 Delivery O2 Flow Rate FiO2 03/30/20 09:53 72 16 117/75 (89) 100 Room Air 03/30/20 08:02 98.9 98.9 EKG: EKG: [] Radiology/Procedures: Radiology/Procedures: [] Course & Med Decision Making: Course & Med Decision Making Pertinent Labs and Imaging studies reviewed. (See chart for details) Patient is a 24-year-old female who presents to the emergency room with vaginal bleeding during . Patient is very well-appearing on exam. Bleeding is minimal. Ultrasound shows a subchorionic hemorrhage. I discussed the results with the patient who states that she had had this previously and that her physician already knew about this. She has a follow-up appointment in 2 weeks with her for a repeat ultrasound. She denies any abdominal pain. UA does show white blood cells. We will put her on Macrobid. I discussed with her that she should call her SPLITTER TENDER today to see if they would like her to follow-up sooner. Patient's test results and vitals while in the ED were fully reviewed and discussed with the patient. Patient is stable and at this time does not need admission to the hospital. We have discussed strict return precautions and the importance of following up with their Primary Care Physician. Patient stated understanding and was given an opportunity to ask any questions. Dragon Disclaimer: Dragcarly Disclaimer: This electronic medical record was generated, in whole or in part, using a voice recognition dictation system. Departure Departure Impression: Primary Impression: Vaginal bleeding during Disposition: HOME/RESIDENCE PRIOR TO ADM Condition: GOOD Referrals: UNKNOWN PCP NAME (PCP) Patient Instructions: Urinary Tract Infection, Vaginal Bleeding During , Second Trimester Scripts Nitrofurantoin Monohyd/M-Cryst (MACROBID 100 MG CAPSULE) 100 Mg Capsule 1 CAP PO BID for 5 Days, #10 CAP 0 Refills Prov: GARRETT GAGNON MD 03/30/20 GARRETT GAGNON MD Mar 30, 2020 10:34
== END 2020-03-30 10:20 | disposition home or self-care (01) ==
LOC: ER 07:51
DX: O46.92 Antepartum hemorrhage, unspecified, second trimester (principal); Z87.891 Personal history of nicotine dependence; Z3A.15 15 weeks gestation of pregnancy
CPT/HCPCS: 36415; 76815; 81001; 81025; 85025; 86900; 86901; 99284

== ENCOUNTER 2020-04-24 13:41 | Emergency (ER) | payer OTHER ==
[~2020-04-24] VITALS: Ht 172.7 cm; Wt 95.0 kg
[~2020-04-24 13:41] MED LIST changes: +NITR100C62 PO
--- NOTE | 2020-04-24 15:25 | RAD ---
EXAM: Right lower extremity venous Doppler sonogram. HISTORY: Pain and swelling. TECHNIQUE: Davis scale and color Doppler sonographic evaluation of the right lower extremity veins with spectral waveform analysis was performed. FINDINGS: There is normal color flow, normal compressibility and there are normal spectral waveforms in the common femoral, superficial femoral, popliteal, posterior tibial and greater saphenous veins. IMPRESSION: No Doppler evidence of lower extremity deep venous thrombosis. Electronically signed by: Zakia Michelle MD (04/24/2020 3:22 PM) [id number]
--- NOTE | 2020-04-24 15:57 | PHYS DOC ---
Past Medical History Past Medical History: No Pertinent History Additional Past Medical Histor: Multiple abscess's Past Surgical History: No Surgical History Smoking Status: Former Smoker Alcohol Use: None Drug Use: None General Adult EDM: Chief Complaint: SHORTNESS OF BREATH HPI: HPI: Patient is a 24 year old AA female who presents to the emergency department with complaints of shortness of breath on exertion for the last 2 days. She reports that she was seen 4 days ago at [facility] after a fall and she was diagnosed with a right foot sprain and broken toes. She has been wearing a walking boot since then. Patient reports that she is 18 weeks she denies any abdominal pain, vaginal bleeding, irregular vaginal discharge, or back pain. She reports concerned that no one checked on the baby at her previous visit with the sonogram, she requests that a sonogram would be done today. Patient denies any chest pain, palpitations, wheezing, cough, nausea, vomiting, diarrhea, fever, or sore throat. She currently denies any pain. Review of Systems: Review of Systems: Constitutional: Denies fever or chills. [] Eyes: Denies change in visual acuity. [] HENT: Denies nasal congestion or sore throat. [] Respiratory: See HPI Cardiovascular: Denies chest pain or edema. [] GI: Denies abdominal pain, nausea, vomiting, or diarrhea. [] : Denies dysuria, hematuria, or increased urinary frequency. [] Musculoskeletal: Denies back pain Integument: Denies rash. [] Neurologic: Denies headache, focal weakness or sensory changes. [] Psychiatric: Denies depression or anxiety. [] Heart Score: Risk Factors: Risk Factors: DM, Current or recent (<one month) smoker, HTN, HLP, family history of CAD, obesity. Risk Scores: Score 0 - 3: 2.5% MACE over next 6 weeks - Discharge Home Score 4 - 6: 20.3% MACE over next 6 weeks - Admit for Clinical Observation Score 7 - 10: 72.7% MACE over next 6 weeks - Early Invasive Strategies Allergies: Allergies: Allergies Coded Allergies Type Severity Reaction Last Updated Verified No Known Drug Allergies 10/10/16 No Physical Exam: PE: Constitutional: Well developed, well nourished, no acute distress, non-toxic appearance. [] HENT: Normocephalic, atraumatic, bilateral external ears normal, nose normal. [] Eyes: PERRLA, EOMI, conjunctiva normal, no discharge. [] Neck: Normal range of motion, no stridor. [] Cardiovascular: Heart rate regular rhythm Lungs & Thorax: Lungs clear in all mendosa, respirations even and unlabored, no retractions, no respiratory distress Abdomen: soft, palpable fundus just below the umbilicus Skin: Warm, dry, no erythema, no rash. [] Extremities: RLE: In walking boot, cap refill less than 2, no edema; LLE: PMS intact, cap refill less than 2 seconds, no edema [] Neurologic: Alert and oriented X 3, no focal deficits noted. [] Psychologic: Affect normal, judgement normal, mood normal. [] Current Patient Data: Vital Signs: Vital Signs Date Time Temp Pulse Resp B/P (MAP) Pulse Ox O2 Delivery O2 Flow Rate FiO2 04/24/20 13:57 99.4 70 18 136/65 (88) 99 Room Air 99.4 EKG: EKG: [] Radiology/Procedures: Radiology/Procedures: PROCEDURE: VENOUS LOWER EXTREMITY RIGHT EXAM: Right lower extremity venous Doppler sonogram. HISTORY: Pain and swelling. TECHNIQUE: Davis scale and color Doppler sonographic evaluation of the right lower extremity veins with spectral waveform analysis was performed. FINDINGS: There is normal color flow, normal compressibility and there are normal spectral waveforms in the common femoral, superficial femoral, popliteal, posterior tibial and greater saphenous veins. IMPRESSION: No Doppler evidence of lower extremity deep venous thrombosis. [] FHT's 155 per OB nurse Course & Med Decision Making: Course & Med Decision Making Pertinent Labs and Imaging studies reviewed. (See chart for details) Patient is a 24-year-old female who presented with complaints of shortness of breath with exertion during . Her vital signs are stable, patient's O2 sat remained 98-100% on room air. There is no respiratory distress noted, sinus clear on physical exam No DVT present in right lower extremity. Patient refused blood work. heart tones around 155. Advised the patient that she needs to have an anatomy scan at her [facility]'s at this point in her , she reports movement and heart tones are normal today therefore no sonogram will be done. I also informed the patient that as the baby grows there is less room for her lungs to expand so shortness of breath with exertion during can be normal. Patient verbalized an understanding of home care, medications, follow-up, and return to ED instructions and was in agreement with the plan of care. [] Dragon Disclaimer: Dragon Disclaimer: This electronic medical record was generated, in whole or in part, using a voice recognition dictation system. Departure Departure Impression: Primary Impression: Short of breath on exertion Additional Impression: Shortness of breath due to in second trimester Disposition: 01 HOME, SELF-CARE Condition: STABLE Referrals: UNKNOWN PCP NAME (PCP) Patient Instructions: - Second Trimester, [id number] Additional Instructions: Follow up with your OBGYN next week, call them this afternoon and tell them you were seen in the ER. Return to the ER if your symptoms worsen. Justicifation of Admission Dx: Justifications for Admission: Justification of Admission Dx: N/A KAREN BIRMINGHAM APRN Apr 24, 2020 15:57
[2020-04-24 16:00] VITALS: BP 135/55
== END 2020-04-24 16:05 | disposition home or self-care (01) ==
LOC: ER 13:41
DX: O26.892 Other specified pregnancy related conditions, second trimester (principal); R06.02 Shortness of breath; Z87.891 Personal history of nicotine dependence; Z3A.18 18 weeks gestation of pregnancy
CPT/HCPCS: 93971; 99284

== ENCOUNTER 2020-07-16 08:16 | Emergency (ER) | payer OTHER ==
[~2020-07-16] VITALS: Ht 170.2 cm; Wt 90.9 kg
--- NOTE | 2020-07-16 08:55 | PHYS DOC ---
Past Medical History Past Medical History: No Pertinent History Additional Past Medical Histor: Multiple abscess's Past Surgical History: No Surgical History Additional Past Surgical Histo: VAGINAL X3 Smoking Status: Current Every Day Smoker Alcohol Use: None Drug Use: None General Adult EDM: Chief Complaint: CHEST WALL PAIN HPI: HPI: 24-year-old AA female past medical history of iron deficiency anemia with recent labor at [address] [facility] 1 month ago, requiring 2 units of blood transfusion, presents to the ED with complaints of lower sternum versus epigastric sharp abdominal pain that radiates up her chest, starting at 4 AM, worse on both lying flat, improved with sitting upright. Denies any spicy foods, alcohol use, fried foods. patient states pain is been constant and woke her up. Reports she tested positive for COVID prior to delivery at [facility]. Was never told she was high risk . No history of cocaine or methamphetamine abuse. Grandparents with h istory of acute coronary syndrome. Denies any tobacco dependence. Family history of sudden cardiac , aortic disease or connective tissue disorder. No routine medications. Denies any active vaginal bleeding. Review of Systems: Review of Systems: Constitutional: Denies fever or chills. [] Eyes: Denies change in visual acuity. [] HENT: Denies nasal congestion or sore throat. [] Respiratory: Denies cough or shortness of breath. [] Cardiovascular: Denies syncope, hemoptysis or edema. [] GI: Denies nausea, vomiting, bloody stools or diarrhea. [] : Denies dysuria, vaginal bleeding Musculoskeletal: Denies back pain or joint pain. [] Integument: Denies rash. [] Neurologic: Denies headache, focal weakness or sensory changes. [] Endocrine: Denies polyuria or polydipsia. [] Lymphatic: Denies swollen glands. [] Psychiatric: Denies depression or anxiety. [] Heart Score: HEART Score for Chest Pain: HEART Score for Chest Pain Response (Comments) Value History Slighlty/Non-Suspicious 0 ECG Normal 0 Age < 45 0 Risk Factors 1 or 2 Risk Factors 1 Troponin < Normal Limit 0 Total 1 Risk Factors: Risk Factors: DM, Current or recent (<one month) smoker, HTN, HLP, family history of CAD, obesity. Risk Scores: Score 0 - 3: 2.5% MACE over next 6 weeks - Discharge Home Score 4 - 6: 20.3% MACE over next 6 weeks - Admit for Clinical Observation Score 7 - 10: 72.7% MACE over next 6 weeks - Early Invasive Strategies Allergies: Allergies: Allergies Coded Allergies Type Severity Reaction Last Updated Verified No Known Drug Allergies 10/10/16 No Physical Exam: PE: Constitutional: Well developed, well nourished, no acute distress, non-toxic appearance. [] HENT: Normocephalic, atraumatic, bilateral external ears normal, oropharynx moist, no oral exudates, Eyes: EOMI, conjunctiva normal, no discharge. [] Neck: Normal range of motion, supple, no stridor. [] Cardiovascular:Heart rate regular rhythm, no murmur [] Lungs & Thorax: Bilateral breath sounds clear to auscultation [] Abdomen: Bowel sounds normal, soft, no tenderness, no masses, no pulsatile masses. [] Skin: Warm, dry, no erythema, no rash. [] Back: No tenderness, no CVA tenderness. [] Extremities: No tenderness, no cyanosis, no clubbing, ROM intact, no edema. [] Neurologic: Alert and oriented X 3, normal motor function, normal sensory function, no focal deficits noted. [] Psychologic: Affect normal, judgement normal, mood normal. [] Current Patient Data: Vital Signs: Vital Signs Date Time Temp Pulse Resp B/P (MAP) Pulse Ox O2 Delivery O2 Flow Rate FiO2 07/16/20 08:29 97.8 65 14 130/92 (105) 99 Room Air 97.8 EKG: EKG: Sinus rhythm at 71 bpm, no axis deviation, normal intervals, T wave inversion lead III, no ST elevations or ST depressions, no right heart strain Radiology/Procedures: Radiology/Procedures: IMAGING REPORT Signed PATIENT: JULIET MAYES DACCOUNT: [id number] : 1995 LOCATION: ER AGE: 24 SEX: F EXAM STATUS: REG ER ORD. PHYSICIAN: CHHAYA MAXWELL DO REASON: cp PROCEDURE: CHEST PA & LATERAL EXAM: CHEST PA LATERAL INDICATION: Reason: cp / Spl. Instructions: / History: . TECHNIQUE: PA and lateral views COMPARISON: None FINDINGS: The heart size is normal. The great vessels appear unremarkable. There is no hilar or mediastinal mass. The lungs are clear. There is no pleural effusion or pneumothorax. There are no significant osseous abnormalities. IMPRESSION: No active cardiopulmonary disease. Electronically signed by: Wayne Medley MD (07/16/2020 9:49 AM) [id number] DICTATED and SIGNED BY: WAYNE MEDLEY MD DATE: 07/16/20 0949 []IMAGING REPORT Signed PATIENT: JULIET MAYES DACCOUNT: [id number] : 1995 LOCATION: ER AGE: 24 SEX: F EXAM STATUS: REG ER ORD. PHYSICIAN: CHHAYA MAXWELL DO REASON: chest pain, elevated d-dimer PROCEDURE: CT ANGIOGRAPHY CHEST CT ANGIOGRAPHY CHEST INDICATION: chest pain, elevated d-dimer Comparison: None. TECHNIQUE: Following the uneventful administration of intravenous contrast, 100 cc Omnipaque 350, axial CT sections were obtained through the lungs and upper abdomen. Multiplanar reconstructions and MIP images were obtained. PQRS compliance statement: One or more of the following individualized dose reduction techniques were utilized for this examination: 1. Automated exposure control 2. Adjustment of the mA and/or kV according to patient size 3. Use of iterative reconstruction technique FINDINGS: Pulmonary arteries: No evidence of pulmonary thromboembolic disease. Lungs and Airways: No pulmonary mass or consolidation. No abnormality of the central airways. Pleura: The pleural spaces are normal. Heart and Mediastinum: The visualized thyroid is normal in size and attenuation. No axillary or supraclavicular lymphadenopathy. No mediastinal, hilar or retrocrural lymphadenopathy. The heart and pericardium are within normal limits. The great vessels of the thorax are normal. Residual thymic tissue. Abdomen: Limited images through the upper abdomen show no abnormality of the visualized organs. Bones and Soft Tissues: The visualized bones and chest wall soft tissues are within normal limits. IMPRESSION: 1. No evidence of pulmonary thromboembolic disease. 2. No pulmonary mass or consolidation. Electronically signed by: Jairon Garcia MD (07/16/2020 11:03 AM) [id number] DICTATED and SIGNED BY: JAIRON GARCIA MD DATE: 07/16/20 1103 Course & Med Decision Making: Course & Med Decision Making Pertinent Labs and Imaging studies reviewed. (See chart for details) C/o sternal chest pain that radiates up, worse when lying flat, could represent gerd. No prior gi eval or egd - may need if sxs persist. D-dimer ordered due to recent COVID (prior to knowledge of recent delivery). No dyspnea. CTA w/ no evidence of pulmonary embolus. Patient low risk for mace, troponin negative. Will prescribe Pepcid for 14 days. On re-eval patient, is requesting discharged, symptoms have improved. Encouraged urgent outpatient follow-up with PMD and GI. Life-threatening processes were considered but are low suspicion at this time, given history and physical exam. Pt was educated on all prescription medications and adverse effects. All patient's questions were answered and pt was stable at time of discharge. Differential includes acute myocardial infarction, aortic dissection, congestive heart failure, esophageal injury including rupture, surgical abdomen, arrhythmia, cardiomyopathy, myocarditis, pericarditis, peptic ulcer disease, pneumomediastinum, pneumonia, pneumothorax, pulmonary embolus, unstable angina, rib fracture, contusion, pericardial tamponade or effusion, pulmonary contusion I spoken with the patient and her caregivers. I explained the patient's condition, diagnoses and treatment plan based on the information available to me at this time. I have answered the patient and her caregiver's questions and addressed any concerns. The patient and her caregivers have a good understanding of patient's diagnosis, condition and treatment plan as can be expected at this point. Vital signs have been stable. Patient's condition is stable and appropriate for discharge from the emergency department. Patient will pursue further outpatient evaluation with primary care physician or other designated or consulting physician as outlined in the discharge instructions. The patient and/or caregivers are agreeable to this plan of care and follow-up instructions have been explained in detail. The patient and/or caregivers have received these instructions in written form and have expressed an understanding of the discharge instructions. The patient and/or caregivers are aware that any significant change of condition or worsening of symptoms should prompt immediate return to this or the closest emergency department or call to 911. Vashti Disclaimer: Vashti Disclaimer: This electronic medical record was generated, in whole or in part, using a voice recognition dictation system. Departure Departure Impression: Primary Impression: Chest pain Additional Impression: GERD (gastroesophageal reflux disease) Disposition: HOME, SELF-CARE Condition: STABLE Referrals: NO PCP (PCP) Patient Instructions: Chest Pain (Nonspecific), Gastritis, Adult Additional Instructions: Tracee Ellis MD Find a Physician K Tracee Ellis MD [facility] [place] [place] Address: [address] [place] [address] Stewart Almodovar MD [facility] Address: [address] [place] [address] Scripts Famotidine (PEPCID) 20 Mg Tablet 20 MG PO BID for 14 Days, #28 TAB Prov: CHHAYA MAXWELL DO 07/16/20 Justicifation of Admission Dx: Justifications for Admission: Justification of Admission Dx: N/A CHHAYA MAXWELL DO Jul 16, 2020 08:55
[2020-07-16 08:59] LABS: BASO % 1 % (0-3); EOS # 0.1 x10^3/uL (0.0-0.7); EOS % 2 % (0-3); HEMATOCRIT 35.9 % (36.0-47.0); HEMOGLOBIN 11.8 g/dL (12.0-15.5); LYMPH # 1.7 x10^3/uL (1.0-4.8); LYMPH % 30 % (24-48); MEAN CORPUSCULAR HEMOGLOBIN 29 pg (25-35); MEAN CORPUSCULAR HGB CONC 33 g/dL (31-37); MEAN CORPUSCULAR VOLUME 88 fL (79-100); MONO # 0.5 x10^3/uL (0.0-1.1); MONO % 9 % (0-9); NEUT # 3.3 x10^3/uL (1.8-7.7); NEUT % 58 % (31-73); PLATELET COUNT 228 x10^3/uL (140-400); RED BLOOD COUNT 4.08 x10^6/uL (3.50-5.40); RED CELL DISTRIBUTION WIDTH 15.7 % (11.5-14.5); WHITE BLOOD COUNT 5.7 x10^3/uL (4.0-11.0)
[2020-07-16] MEDS ORDERED: LIDO:MAALOX 1:1 20 ML SINGLE DOSE. SWSW ONE (09:00)
--- NOTE | 2020-07-16 09:08 | EKG ---
[facility] [address] [place] [address] Test Date: 2020-07-16 Test Time: 08:33:16 Pat Name: JULIET MAYES Department: Patient ID: [id number] Room: Gender: F Project Safety Manager: [facility] ER : 1995 Requested By: CHHAYA MAXWELL Order Number: [id number] Reading MD: Measurements Intervals [place] Rate: 71 P: 49 MA: 158 QRS: 43 QRSD: 88 T: 17 QT: 390 QTc: 429 Interpretive Statements SINUS RHYTHM NORMAL ECG RI6.02 No previous ECG available for comparison
[2020-07-16 09:09] LABS: CALCIUM 9.2 mg/dL (8.5-10.1); CREATININE 0.8 mg/dL (0.6-1.0); GFR 108.5; POTASSIUM 3.6 mmol/L (3.5-5.1)
[2020-07-16 09:12] LABS: ALBUMIN 3.7 g/dL (3.4-5.0); ALBUMIN/GLOBULIN RATIO 0.9 (1.0-1.7); TOTAL BILIRUBIN 0.5 mg/dL (0.2-1.0); TOTAL PROTEIN 7.8 g/dL (6.4-8.2)
--- NOTE | 2020-07-16 09:52 | RAD ---
EXAM: CHEST PA LATERAL INDICATION: Reason: cp / Spl. Instructions: / History: . TECHNIQUE: PA and lateral views COMPARISON: None FINDINGS: The heart size is normal. The great vessels appear unremarkable. There is no hilar or mediastinal mass. The lungs are clear. There is no pleural effusion or pneumothorax. There are no significant osseous abnormalities. IMPRESSION: No active cardiopulmonary disease. Electronically signed by: Cuauhtemoc Medley MD (07/16/2020 9:49 AM) [id number]
[2020-07-16 10:00] VITALS: BP 126/86
[2020-07-16] MEDS ORDERED: IOHEXOL 350 MG/ML 100 ML VIAL. IV ONE (10:45)
--- NOTE | 2020-07-16 11:06 | RAD ---
CT ANGIOGRAPHY CHEST INDICATION: chest pain, elevated d-dimer Comparison: None. TECHNIQUE: Following the uneventful administration of intravenous contrast, 100 cc Omnipaque 350, axial CT sections were obtained through the lungs and upper abdomen. Multiplanar reconstructions and MIP images were obtained. PQRS compliance statement: One or more of the following individualized dose reduction techniques were utilized for this examination: 1. Automated exposure control 2. Adjustment of the mA and/or kV according to patient size 3. Use of iterative reconstruction technique FINDINGS: Pulmonary arteries: No evidence of pulmonary thromboembolic disease. Lungs and Airways: No pulmonary mass or consolidation. No abnormality of the central airways. Pleura: The pleural spaces are normal. Heart and Mediastinum: The visualized thyroid is normal in size and attenuation. No axillary or supraclavicular lymphadenopathy. No mediastinal, hilar or retrocrural lymphadenopathy. The heart and pericardium are within normal limits. The great vessels of the thorax are normal. Residual thymic tissue. Abdomen: Limited images through the upper abdomen show no abnormality of the visualized organs. Bones and Soft Tissues: The visualized bones and chest wall soft tissues are within normal limits. IMPRESSION: 1. No evidence of pulmonary thromboembolic disease. 2. No pulmonary mass or consolidation. Electronically signed by: Maksim Garcia MD (07/16/2020 11:03 AM) [id number]
[2020-07-16] MEDS ORDERED: FAMO-63 PO (12:06)
== END 2020-07-16 12:19 | disposition home or self-care (01) ==
LOC: ER 08:16
DX: R07.2 Precordial pain (principal); K21.9 Gastro-esophageal reflux disease without esophagitis; F17.200 Nicotine dependence, unspecified, uncomplicated; Z86.2 Personal history of diseases of the blood and blood-forming organs and certain disorders involving the immune mechanism
CPT/HCPCS: 36415; 71046; 71275; 80053; 81025; 84484; 84702; 85025; 85379; 93005; 99285; Q9967

== ENCOUNTER 2020-07-26 09:38 | Emergency (ER) | payer OTHER ==
[~2020-07-26] VITALS: Ht 172.7 cm; Wt 90.0 kg
[~2020-07-26 09:38] MED LIST changes: +FAMO-63 PO
--- NOTE | 2020-07-26 09:58 | PHYS DOC ---
Past Medical History Past Medical History: No Pertinent History Additional Past Medical Histor: Multiple abscess's Past Surgical History: No Surgical History Additional Past Surgical Histo: VAGINAL X3 Smoking Status: Current Every Day Smoker Alcohol Use: None Drug Use: None General Adult EDM: Chief Complaint: GI PROBLEM HPI: HPI: The history was obtained from the patient. Patient is a 24-year-old female with PMH recent vaginal delivery who presents with a chief complaint of vomiting and epigastric pain. Patient states she has had intermittent epigastric pain over the past week. She notes she was seen 10 days ago for similar complaint. States she was discharged home with medication. She states has been trying the medication without relief. She states the pain seems to be worse in the evening before bed. She does state that she thinks certain foods exacerbate her pain however she does not know which types of food specifically. She notes multiple episodes of nonbloody nonbilious emesis. Denies any previous cholecystectomy. Denies daily alcohol usage. She denies any chest pain or shortness of breath today. She denies any fevers or cough. She denies urinary symptoms. Denies vaginal bleeding or discharge. Denies syncope. Has not followed up with a physician from her previous emergency department visit. No other complaints. Review of Systems: Review of Systems: Constitutional: Denies fever or chills. [] Eyes: Denies change in visual acuity. [] HENT: Denies nasal congestion or sore throat. [] Respiratory: Denies cough or shortness of breath. [] Cardiovascular: Denies chest pain or edema. [] GI: Positive for abdominal pain and vomiting : Denies dysuria. [] Musculoskeletal: Denies back pain or joint pain. [] Integument: Denies rash. [] Neurologic: Denies headache, focal weakness or sensory changes. [] Endocrine: Denies polyuria or polydipsia. [] Lymphatic: Denies swollen glands. [] Psychiatric: Denies depression or anxiety. [] Heart Score: Risk Factors: Risk Factors: DM, Current or recent (<one month) smoker, HTN, HLP, family hist ory of CAD, obesity. Risk Scores: Score 0 - 3: 2.5% MACE over next 6 weeks - Discharge Home Score 4 - 6: 20.3% MACE over next 6 weeks - Admit for Clinical Observation Score 7 - 10: 72.7% MACE over next 6 weeks - Early Invasive Strategies Allergies: Allergies: Allergies Coded Allergies Type Severity Reaction Last Updated Verified No Known Drug Allergies 10/10/16 No Physical Exam: PE: Constitutional: Well developed, well nourished, no acute distress, non-toxic appearance. [] HENT: Normocephalic, atraumatic, bilateral external ears normal, oropharynx moist, no oral exudates, nose normal. [] Eyes: PERRLA, EOMI, conjunctiva normal, no discharge. [] Neck: Normal range of motion, no tenderness, supple, no stridor. [] Cardiovascular:Heart rate regular rhythm, no murmur [] Lungs & Thorax: Bilateral breath sounds clear to auscultation [] Abdomen: Moderate reproducible epigastric tenderness to palpation. Positive Swann sign. Skin: Warm, dry, no erythema, no rash. [] Back: No tenderness, no CVA tenderness. [] Extremities: No tenderness, no cyanosis, no clubbing, ROM intact, no edema. [] Neurologic: Alert and oriented X 3, normal motor function, normal sensory fun ction, no focal deficits noted. [] Psychologic: Affect normal, judgement normal, mood normal. [] Current Patient Data: Labs: Laboratory Tests Test 07/26/20 10:00 07/26/20 10:15 07/26/20 10:22 07/26/20 10:23 White Blood Count 4.7 x10^3/uL Red Blood Count 4.36 x10^6/uL Hemoglobin 12.6 g/dL Hematocrit 37.4 % Mean Corpuscular Volume 86 fL Mean Corpuscular Hemoglobin 29 pg Mean Corpuscular Hemoglobin Concent 34 g/dL Red Cell Distribution Width 15.6 % Platelet Count 237 x10^3/uL Neutrophils (%) (Auto) 48 % Lymphocytes (%) (Auto) 40 % Monocytes (%) (Auto) 9 % Eosinophils (%) (Auto) 2 % Basophils (%) (Auto) 0 % Neutrophils # (Auto) 2.3 x10^3/uL Lymphocytes # (Auto) 1.9 x10^3/uL Monocytes # (Auto) 0.4 x10^3/uL Eosinophils # (Auto) 0.1 x10^3/uL Basophils # (Auto) 0.0 x10^3/uL Urine Collection Type Unknown Urine Color Yellow Urine Clarity Clear Urine pH 8.0 Urine Specific [place] 1.010 Urine Protein Negative mg/dL Urine Glucose (UA) Negative mg/dL Urine Ketones (Stick) Negative mg/dL Urine Blood Negative Urine Nitrite Negative Urine Bilirubin Negative Urine Urobilinogen Dipstick 1.0 mg/dL Urine Leukocyte Esterase Negative Urine RBC 0 /HPF Urine WBC 1-4 /HPF Urine Squamous Epithelial Cells Many /LPF Urine Bacteria Moderate /HPF Bedside Urine HCG, Qualitative Hcg negative Sodium Level 141 mmol/L Potassium Level 3.6 mmol/L Chloride Level 104 mmol/L Carbon Dioxide Level 27 mmol/L Anion Gap 10 Blood Urea Nitrogen 6 mg/dL Creatinine 0.7 mg/dL Estimated GFR (Cockcroft-Gault) 126.6 BUN/Creatinine Ratio 9 Glucose Level 92 mg/dL Calcium Level 9.0 mg/dL Total Bilirubin 0.6 mg/dL Aspartate Amino Transf (AST/SGOT) 13 U/L Alanine Aminotransferase (ALT/SGPT) 16 U/L Alkaline Phosphatase 64 U/L Troponin I Quantitative < 0.017 ng/mL Total Protein 7.5 g/dL Albumin 3.8 g/dL Albumin/Globulin Ratio 1.0 Lipase 54 U/L Current Medications Medications (Trade) Dose Ordered Sig/Dinesh Route PRN Reason Start Time Stop Time Status Last Admin Dose Admin Sodium Chloride 1,000 ml @ 1,000 mls/hr 1X ONCE IV 07/26/20 10:00 07/26/20 10:59 DC 07/26/20 10:18 Famotidine (Pepcid Vial) 20 mg 1X ONCE IVP 07/26/20 10:30 07/26/20 10:31 DC 07/26/20 10:18 Pantoprazole Sodium (PROTONIX VIAL for IV PUSH) 40 mg 1X ONCE IVP 07/26/20 10:30 07/26/20 10:31 DC 07/26/20 10:19 Morphine Sulfate (Morphine Sulfate) 4 mg 1X ONCE IV 07/26/20 10:30 07/26/20 10:31 DC 07/26/20 10:18 Ondansetron HCl (Zofran) 4 mg 1X ONCE IVP 07/26/20 10:30 07/26/20 10:31 DC 07/26/20 10:18 Iohexol (Omnipaque 300 Mg/ml) 75 ml 1X ONCE IV 07/26/20 11:15 07/26/20 11:16 DC Info (CONTRAST GIVEN -- Rx MONITORING) 1 each PRN DAILY PRN MC SEE COMMENTS 07/26/20 11:30 07/28/20 11:29 EKG: EKG: EKG consistent with normal sinus rhythm. Ventricular rate of 74 bpm. Harrison normal. Intervals otherwise normal. Nonspecific interventricular conduction delay noted. No acute ischemic changes appreciated. [] Radiology/Procedures: Radiology/Procedures: [facility] [address] [place] [address] IMAGING REPORT Signed PATIENT: JULIET MAYES DACCOUNT: [id number] : 1995 LOCATION: ER AGE: 24 SEX: F EXAM STATUS: PRE ER ORD. PHYSICIAN: KYRA COTTRELL DO REASON: epigastric pain with vomiting. eval RUQ PROCEDURE: ABDOMEN LTD Abdominal ultrasound 07/26/2020. Reason for exam: Epigastric pain and vomiting. FINDINGS: The liver is homogeneous in echotexture, and no intra or extrahepatic ductal dilatation is seen. The gallbladder was distended at the time of the exam. It contains a stone at the neck, measuring about 12 mm. Gallbladder wall thickness is mildly increased at about 3.6 mm. No pericholecystic fluid is seen. The right kidney, pancreas and visualized portions of the aorta and inferior vena cava appear normal. IMPRESSION: Findings just cholecystitis. Electronically signed by: Rod Goel Jr., MD (07/26/2020 11:09 AM) [facility] DICTATED and SIGNED BY: ROD GOEL Jr, MD DATE: 07/26/20 1109 [] Course & Med Decision Making: Course & Med Decision Making Pertinent Labs and Imaging studies reviewed. (See chart for details) [] Patient is an uncomfortable appearing 24-year-old female presents with chief complaint of epigastric and right upper quadrant abdominal discomfort after eating food. She does note episodes of nonbloody nonbilious emesis. Initial vital signs unremarkable including afebrile non-tachycardic. Exam noted above. Right upper quadrant ultrasound is suggestive of acute cholecystitis. Distended gallbladder wall measuring 3.6 mm. Gallstone noted in the neck of the gallbladder. No surrounding pericholecystic fluid identified. CBC without leukocytosis. LFTs and alk phos as well as lipase within normal limits. I did discuss the imaging findings with general surgeon Dr. Mathew. He stated that the patient could either follow-up in clinic tomorrow morning or be hospitalized for surgical intervention in the near future. I did discuss results of labs and imaging in great detail with the patient. On my repeat examination she still has mild tenderness but this is significantly improved. States her symptoms have improved. She has tolerated p.o. in the emergency department. After discussion patient would like to follow-up in clinic with the general surgeon tomorrow morning. I did explain to the patient that this could delay surgical intervention and this could result in worsening infection potentially developing into a life-threatening illness. Patient does appear to have capacity at this time. She is alert and oriented x3. She does appear to have understanding of her health care needs and potential consequences. At this time utilizing shared decision making patient will be discharged home to follow-up with general surgeon tomorrow morning in clinic. She will be discharged home with medication and supportive care measures. Strict return precautions discussed and understood. Tariqon Disclaimer: Nualight Disclaimer: This electronic medical record was generated, in whole or in part, using a voice recognition dictation system. Departure Departure Impression: Primary Impression: Right upper quadrant abdominal pain Additional Impression: Nausea and vomiting Qualified Codes: R11.2 - Nausea with vomiting, unspecified Disposition: 01 HOME, SELF-CARE Condition: STABLE Referrals: NO PCP (PCP) GERMAN MATHEW MD Patient Instructions: Cholecystitis, Laparoscopic Cholecystectomy Additional Instructions: Please return emergency department immediately should your symptoms not improve or worsen. Scripts Famotidine (PEPCID) 20 Mg Tablet 20 MG PO BID for 7 Days, #14 TAB Prov: KYRA COTTRELL DO 07/26/20 Ondansetron Hcl (ZOFRAN) 4 Mg Tablet 4 MG PO PRN TID PRN for NAUSEA, #9 nausea/vomiting Prov: KYRA COTTRELL DO 07/26/20 Justicifation of Admission Dx: Justifications for Admission: Justification of Admission Dx: N/A KYRA COTTRELL DO Jul 26, 2020 09:58
[2020-07-26] MEDS ORDERED: IV NORMAL SALINE 1000ML BAG 1,000 ML IV ONE (10:00)
[2020-07-26 10:12] LABS: BASO % 0 % (0-3); EOS # 0.1 x10^3/uL (0.0-0.7); EOS % 2 % (0-3); HEMATOCRIT 37.4 % (36.0-47.0); HEMOGLOBIN 12.6 g/dL (12.0-15.5); LYMPH # 1.9 x10^3/uL (1.0-4.8); LYMPH % 40 % (24-48); MEAN CORPUSCULAR HEMOGLOBIN 29 pg (25-35); MEAN CORPUSCULAR HGB CONC 34 g/dL (31-37); MEAN CORPUSCULAR VOLUME 86 fL (79-100); MONO # 0.4 x10^3/uL (0.0-1.1); MONO % 9 % (0-9); NEUT # 2.3 x10^3/uL (1.8-7.7); NEUT % 48 % (31-73); PLATELET COUNT 237 x10^3/uL (140-400); RED BLOOD COUNT 4.36 x10^6/uL (3.50-5.40); RED CELL DISTRIBUTION WIDTH 15.6 % (11.5-14.5); WHITE BLOOD COUNT 4.7 x10^3/uL (4.0-11.0)
[2020-07-26] MEDS ORDERED: FAMOTIDINE 20 MG/2 ML VIAL IVP ONE (10:30)
[2020-07-26] MEDS ORDERED: PANTOPRAZOLE IV PUSH 40 MG VIAL. IVP ONE (10:30)
[2020-07-26] MEDS ORDERED: ONDANSETRON PF 4 MG/2 ML VIAL. IVP ONE (10:30)
[2020-07-26] MEDS ORDERED: MORPHINE SULFATE 4 MG/ML VIAL. IV ONE (10:30)
[2020-07-26 10:36] LABS: BILIRUBIN,URINE NEGATIVE (NEG); CLARITY,URINE CLEAR; COLOR,URINE YELLOW; NITRITE,URINE NEGATIVE (NEG); PROTEIN,URINE NEGATIVE (NEG-TRACE)
[2020-07-26 10:42] LABS: CREATININE 0.7 mg/dL (0.6-1.0); GFR 126.6; POTASSIUM 3.6 mmol/L (3.5-5.1)
[2020-07-26 10:47] LABS: ALBUMIN 3.8 g/dL (3.4-5.0); TOTAL BILIRUBIN 0.6 mg/dL (0.2-1.0); TOTAL PROTEIN 7.5 g/dL (6.4-8.2)
[2020-07-26 11:09] LABS: BACTERIA,URINE MODERATE /HPF (0-FEW); RBC,URINE 0 /HPF (0-2); SQUAMOUS EPITHELIAL CELL,UR MANY /LPF
--- NOTE | 2020-07-26 11:12 | RAD ---
Abdominal ultrasound 07/26/2020. Reason for exam: Epigastric pain and vomiting. FINDINGS: The liver is homogeneous in echotexture, and no intra or extrahepatic ductal dilatation is seen. The gallbladder was distended at the time of the exam. It contains a stone at the neck, measuring about 12 mm. Gallbladder wall thickness is mildly increased at about 3.6 mm. No pericholecystic fluid is seen. The right kidney, pancreas and visualized portions of the aorta and inferior vena cava appear normal. IMPRESSION: Findings just cholecystitis. Electronically signed by: Tyree Goel Jr., MD (07/26/2020 11:09 AM) [facility]
[2020-07-26] MEDS ORDERED: IOHEXOL 300 MG/ML 100ML VIAL. IV ONE (11:15)
[2020-07-26] MEDS ORDERED: CONTRAST GIVEN. MC PRN (11:30)
[2020-07-26] MEDS ORDERED: FAMO-63 PO (11:36)
[2020-07-26] MEDS ORDERED: ONDA4TAB7 PO (11:36)
[2020-07-26 11:43] VITALS: BP 128/79
--- NOTE | 2020-07-28 03:16 | EKG ---
[facility] [address] [place] [address] Test Date: 2020-07-26 Test Time: 09:49:55 Pat Name: JULIET MAYES Department: Room: Gender: F Fisher Mussel: : 1995 Requested By: KYRA COTTRELL Order Number: [id number] Reading MD: Bucky Freire Measurements Intervals [place] Rate: 74 P: 66 [place]: 166 QRS: 42 QRSD: 86 T: 28 QT: 398 QTc: 447 Interpretive Statements SINUS RHYTHM LEFT ATRIAL ABNORMALITY Electronically Signed On 07-29-2020 12:28:49 CDT by Bucky Freire
== END 2020-07-26 11:52 | disposition home or self-care (01) ==
LOC: ER 09:38
DX: R10.11 Right upper quadrant pain (principal); R11.2 Nausea with vomiting, unspecified; F17.200 Nicotine dependence, unspecified, uncomplicated; Z98.890 Other specified postprocedural states
CPT/HCPCS: 36415; 76705; 80053; 81001; 81025; 83690; 84484; 85025; 87086; 93005; 96361; 96374; 96375; 99285; C9113; J2270; J2405; J3490; J7030; 87077